=== PATIENT | male | born 1955 | race Caucasian/White ===

== ENCOUNTER → 2023-06-09 08:10 | Outpatient (REF) | payer MEDICARE, OTHER, SELFPAY | LOC: RAD 08:10 | PROVIDERS: ATTENDING PHYSICIAN Internal Medicine; FAMILY PHYSICIAN Internal Medicine | DX: R05.8 Other specified cough (principal) | CPT/HCPCS: 71046 ==

== ENCOUNTER → 2023-08-31 07:11 | Outpatient (REF) | payer MEDICARE, OTHER, SELFPAY | LOC: HWRAD 07:11 | PROVIDERS: ATTENDING PHYSICIAN Internal Medicine | DX: Z71.6 Tobacco abuse counseling (principal); R22.1 Localized swelling, mass and lump, neck | CPT/HCPCS: 76536 ==

== ENCOUNTER → 2024-01-25 09:37 | Outpatient (REF) | payer MEDICARE, OTHER, SELFPAY | LOC: HWRAD 09:37 | PROVIDERS: ATTENDING PHYSICIAN Internal Medicine; FAMILY PHYSICIAN Internal Medicine | DX: F17.210 Nicotine dependence, cigarettes, uncomplicated (principal) | CPT/HCPCS: 71271 ==

== ENCOUNTER → 2024-01-28 07:54 | Outpatient (REF) | payer MEDICARE, OTHER, SELFPAY | LOC: HWRCS 07:54 | PROVIDERS: ATTENDING PHYSICIAN Internal Medicine Cardiovascular Disease; FAMILY PHYSICIAN Internal Medicine | DX: I45.2 Bifascicular block (principal); I10 Essential (primary) hypertension; R42 Dizziness and giddiness | CPT/HCPCS: 93306 ==

== ENCOUNTER 2024-02-04 06:29 | Day surgery (SDC) | payer MEDICARE, OTHER, SELFPAY ==
[2024-02-04] VITALS (9 sets, daily range): BP systolic 112–149; BP diastolic 44–75; BMI 30.2
== END 2024-02-04 13:20 | disposition home or self-care (01) ==
LOC: SDS 06:29
PROVIDERS: ATTENDING PHYSICIAN Internal Medicine Critical Care Medicine
DX: C34.31 Malignant neoplasm of lower lobe, right bronchus or lung (principal); C77.1 Secondary and unspecified malignant neoplasm of intrathoracic lymph nodes; F17.200 Nicotine dependence, unspecified, uncomplicated; T65.222D Toxic effect of tobacco cigarettes, intentional self-harm, subsequent encounter; Y93.89 Activity, other specified; R59.0 Localized enlarged lymph nodes; R91.1 Solitary pulmonary nodule; J92.0 Pleural plaque with presence of asbestos
CPT/HCPCS: 31625; 31627; 31623; 31624; 31654; 88172; 88173; 88305; 71045; 76000; 81459; 88112; 88177; 88333; 88341; 88342; 94640

== ENCOUNTER → 2024-02-29 11:03 | Outpatient (REF) | payer MEDICARE, OTHER, SELFPAY ==
[2024-02-29 09:24] LABS: % Basophils 0.4 % (0-2); % Eosinophils 0.7 % (0-6); % Immature Granulocytes 0.7 % (0-0.5); % Lymphocytes 22.8 % (20.5-51.1); % Neutrophils 66.4 % (42.2-75.2); Absolute Basophils 0.1 10^3/uL (0-0.2); Absolute Eosinophils 0.1 10^3/uL (0-0.7); Absolute Immature Granulocytes 0.1 10^3/uL (0-0.05); Absolute Lymphocytes 2.8 10^3/uL (1.2-3.4); Absolute Monocytes 1.1 10^3/uL (0.1-0.6); Absolute Neutrophils 8.2 10^3/uL (1.4-6.5); Hematocrit 45.2 % (39.0-52.0); Hemoglobin 15.6 g/dL (13.0-18.0); Mean Corp Hgb Conc. 34.5 g/dL (33.0-37.0); Mean Corpuscular Hgb 32.8 pg (27.0-31.0); Nucleated Red Blood Cells % 0 % (-); Platelet Count 215 10^3/uL (130-400); Red Blood Cell Count 4.76 10^6/uL (4.70-6.10); Red Cell Dist. Width 13.5 % (11.5-14.5); White Blood Cell Count 12.3 10^3/uL (4.8-10.8)
[2024-02-29 09:26] LABS: INR 0.91; PT 12.5 Sec (11.4-14.6)
[2024-02-29 09:27] LABS: APTT 24.9 Sec (23.4-35.0)
[2024-02-29 09:36] LABS: ALT (SGPT) 20 U/L (0-50); AST (SGOT) 18 U/L (17-59); Albumin 3.8 g/dl (3.5-5.0); Alkaline Phosphatase 104 U/L (38-126); Blood Urea Nitrogen 11 mg/dl (9-20); Calcium 9.4 mg/dl (8.4-10.2); Carbon Dioxide 28 mmol/L (22-30); Chloride 98 mmol/L (98-107); Glucose 188 mg/dl (70-99); Potassium 4.1 mmol/L (3.5-5.1); Sodium 132 mmol/L (135-145); Total Bilirubin 0.4 mg/dl (0.2-1.3); Total Protein 6.2 g/dl (6.3-8.2); eGFR > 60.00
== END ==
LOC: OIDL 11:03
PROVIDERS: ATTENDING PHYSICIAN Internal Medicine Hematology & Oncology
DX: D75.1 Secondary polycythemia (principal); E83.10 Disorder of iron metabolism, unspecified
CPT/HCPCS: 80053; 85025; 85610; 85730

== ENCOUNTER → 2024-03-05 08:12 | Outpatient (REF) | payer MEDICARE, OTHER, SELFPAY | LOC: MRI 3T 08:12 | PROVIDERS: ATTENDING PHYSICIAN Internal Medicine Hematology & Oncology; FAMILY PHYSICIAN Internal Medicine; REFERRING PHYSICIAN Internal Medicine | DX: D75.1 Secondary polycythemia (principal); E83.10 Disorder of iron metabolism, unspecified; C34.91 Malignant neoplasm of unspecified part of right bronchus or lung; F17.210 Nicotine dependence, cigarettes, uncomplicated | CPT/HCPCS: 70553; A9575 ==

== ENCOUNTER → 2024-03-14 08:18 | Outpatient (REF) | payer MEDICARE, OTHER, SELFPAY ==
[2024-03-14 08:45] VITALS: BP 135/73; BP_SYST 98
== END ==
LOC: RADI 08:18
PROVIDERS: ATTENDING PHYSICIAN Internal Medicine Hematology & Oncology
DX: C34.91 Malignant neoplasm of unspecified part of right bronchus or lung (principal)
CPT/HCPCS: 36561; 76937; 77001; 99152; 99153; C1788

== ENCOUNTER → 2024-05-01 09:12 | Outpatient (REF) | payer MEDICARE, OTHER, SELFPAY ==
[2024-05-01 09:45] LABS: % Basophils 0.7 % (0-2); % Immature Granulocytes 0.7 % (0-0.5); % Lymphocytes 31.1 % (20.5-51.1); % Monocytes 7.9 % (1.7-9.3); % Neutrophils 57.6 % (42.2-75.2); Absolute Lymphocytes 0.5 10^3/uL (1.2-3.4); Absolute Monocytes 0.1 10^3/uL (0.1-0.6); Absolute Neutrophils 0.9 10^3/uL (1.4-6.5); Hematocrit 29.2 % (39.0-52.0); Hemoglobin 10.3 g/dL (13.0-18.0); Mean Corp Hgb Conc. 35.3 g/dL (33.0-37.0); Mean Corpuscular Hgb 32.3 pg (27.0-31.0); Mean Corpuscular Volume 91.5 fL (80.0-94.0); Mean Platelet Volume 10.5 fL (7.4-10.4); Platelet Count 105 10^3/uL (130-400); Red Blood Cell Count 3.19 10^6/uL (4.70-6.10); Red Cell Dist. Width 14.5 % (11.5-14.5); White Blood Cell Count 1.5 10^3/uL (4.8-10.8)
[2024-05-01 10:17] LABS: Blood Urea Nitrogen 8 mg/dl (9-20); Calcium 6.4 mg/dl (8.4-10.2); Carbon Dioxide 25 mmol/L (22-30); Chloride 99 mmol/L (98-107); Glucose 142 mg/dl (70-99); Potassium 3.3 mmol/L (3.5-5.1); Sodium 134 mmol/L (135-145); eGFR > 60.00
== END ==
LOC: OIDL 09:12
PROVIDERS: ATTENDING PHYSICIAN Internal Medicine Hematology & Oncology
DX: D75.1 Secondary polycythemia (principal)
CPT/HCPCS: 80048; 85025

== ENCOUNTER 2024-05-08 21:54 | Inpatient (IN) | payer MEDICARE, OTHER, SELFPAY ==
[2024-05-08 13:08] VITALS: BP 95/56
[2024-05-08 13:27] LABS: Hematocrit 25.5 % (39.0-52.0); Hemoglobin 9.2 g/dL (13.0-18.0); Mean Corp Hgb Conc. 36.1 g/dL (33.0-37.0); Mean Corpuscular Hgb 32.2 pg (27.0-31.0); Mean Corpuscular Volume 89.2 fL (80.0-94.0); Mean Platelet Volume 10.3 fL (7.4-10.4); Platelet Count 174 10^3/uL (130-400); Red Blood Cell Count 2.86 10^6/uL (4.70-6.10); Red Cell Dist. Width 16.4 % (11.5-14.5); White Blood Cell Count 3.1 10^3/uL (4.8-10.8)
[2024-05-08 13:54] LABS: ALT (SGPT) 35 U/L (0-50); AST (SGOT) 40 U/L (17-59); Albumin 3.3 g/dl (3.5-5.0); Alkaline Phosphatase 61 U/L (38-126); Blood Urea Nitrogen 11 mg/dl (9-20); Calcium 6.2 mg/dl (8.4-10.2); Carbon Dioxide 27 mmol/L (22-30); Chloride 94 mmol/L (98-107); Glucose 110 mg/dl (70-99); Potassium 2.9 mmol/L (3.5-5.1); Sodium 131 mmol/L (135-145); Total Bilirubin 0.9 mg/dl (0.2-1.3); eGFR > 60.00
[2024-05-08 14:19] LABS: Band Neutrophils 4 % (0-3); Eosinophils 2 % (0-6); Lymphocytes 12 % (20-51); Monocytes 15 % (2-9); Segmented Neutrophils 63 % (42-75)
[2024-05-08 14:20] LABS: Atypical Lymphocytes 4 %; Normal RBC Morphology Yes; Platelets Checked Yes; Total Cells Counted 100
[2024-05-08 17:10] VITALS: BMI 27.6
[2024-05-08 17:23] VITALS: BP 134/78
--- NOTE | 2024-05-08 17:49 | ED.GENMED ---
History of Present Illness
<Shawna Mcintyre PA-C - Last Filed: 05/08/24 20:42>
General
Chief Complaint: Abnormal Lab Value
Source: patient
Exam Limitations: none
Time Seen by Provider: 05/08/24 17:02
Nursing documentation reviewed up to this point in time: agreed with
History of Present Illness
History of Present Illness:
Patient is a 69-year-old male with history of lung cancer currently on chemotherapy, hypertension, hyperlipidemia presenting to the emergency department after outpatient lab work showed low calcium levels. Sent to the emergency department by
oncologist. Patient reports he does have some paresthesias to his bilateral hands, feet, and face. Patient reports mild shortness of breath which is somewhat chronic. Patient denies any chest pain. Patient does note that he has been much more
fatigued and mildly lightheaded recently. Patient denies any abdominal pain. Patient denies any lower extremity edema or pain.
Patient does report that his lab work obtained last week also showed a low calcium level however�patient was treated with IV calcium and p.o. calcium.
Review of Systems
<Shawna Mcintyre PA-C - Last Filed: 05/08/24 20:42>
Review of Systems
Allergies reviewed?: Yes
All Other Systems: ROS reviewed and negative except as documented in HPI and ROS
Phy Exam
<Shawna Mcintyre PA-C - Last Filed: 05/08/24 20:42>
Physical Exam
Physical Exam:
Vitals: Mildly hypertensive, tachycardic. Afebrile
General: Patient is in no acute distress.
Skin: Warm and dry, no rashes or lesions
Head: Normocephalic, atraumatic
Eyes: Sclera nonicteric. EOMs intact. No nystagmus.
Throat: Protecting airway
Neck: Normal ROM, no cervical spine tenderness, no meningismus
Cardiac: Tachycardic, normal rhythm, no murmurs.
Pulm: No respiratory distress. Scattered rhonchi bilaterally O2 saturation 99 on room air.
Abdomen: Abdomen soft. No abdominal tenderness.
Extremities: No evidence of cyanosis or edema. Palpable DP pulses bilaterally. Strength 5 out of 5 in upper and lower extremities. Sensation intact.
Neuro: AAOx3. Grossly intact.
Psychiatric: Normal affect.
Course
<Shawna Mcintyre PA-C - Last Filed: 05/08/24 20:42>
Orders/Labs/Results
Orders:
Orders
05/08/24 13:12
Electrocardiogram (*1) Urgent
Reason for Study: Other
Other Reason for Exam: abnormal lab value
05/08/24 13:13
EKG- Treatment ONCE
05/08/24 13:17
Complete Blood Count/With Diff Urgent
Comprehensive Metabolic Panel Urgent
Magnesium Urgent
Manual Differential Urgent
05/08/24 17:29
Add On- LAB Urgent
Tests Added?: magnesium
05/08/24 18:00
Add On- LAB Urgent
Tests Added?: PTH
Potassium Chloride [KCl] 40 meq PO NOW STA
05/08/24 18:21
CT Chest PE Study Urgent
Comment: lung CA on chemo
Reason For Exam: tachyardia, SOB
0.9% Sodium Chloride 500 ml [Nss] 500 ml IV BOLUS
05/08/24 18:24
Potassium Chloride [KCl] 40 meq 0.9% Sodium Chloride 250 ml [Nss] 250 ml IV NOW
05/08/24 18:30
Calcium Gluconate 2 gram/100mL [Calcium Gluconate] 2 gram in 100 ml IV ONCE
05/08/24 18:55
Magnesium Sulfate 2 Gram/50 ml [Magnesium Sulfate] 2 gram in 50 ml IV NOW
Abnormal Lab Results
05/08/24
13:17
WBC 3.1 L 10^3/uL
(4.8-10.8)
RBC 2.86 L 10^6/uL
(4.70-6.10)
Hgb 9.2 L g/dL
(13.0-18.0)
Hct 25.5 L %
(39.0-52.0)
MCH 32.2 H pg
(27.0-31.0)
RDW 16.4 H %
(11.5-14.5)
Band Neutrophils 4 H %
(0-3)
Lymphocytes (Manual) 12 L %
(20-51)
Monocytes (Manual) 15 H %
(2-9)
Sodium 131 L mmol/L
(135-145)
Potassium 2.9 L mmol/L
(3.5-5.1)
Chloride 94 L mmol/L
(98-107)
Glucose 110 H mg/dl
(70-99)
Calcium 6.2 L* mg/dl
(8.4-10.2)
Magnesium 0.6 L* mg/dl
(1.6-2.3)
Total Protein 6.0 L g/dl
(6.3-8.2)
Albumin 3.3 L g/dl
(3.5-5.0)
05/08/24 13:17
05/08/24 13:17
Vital Signs
Initial and Last Documented VS:
Initial Vital Signs
Temp Pulse Resp BP Pulse Ox
97.7 F 112 18 95/56 99
05/08/24 13:08 05/08/24 13:08 05/08/24 13:08 05/08/24 13:08 05/08/24 13:08
Last Documented Vital Signs
Temp Pulse Resp BP Pulse Ox
98.7 F 105 27 140/77 97
05/08/24 18:04 05/08/24 19:15 05/08/24 18:45 05/08/24 19:00 05/08/24 19:00
<Olivia Howard, DO - Last Filed: 05/08/24 19:04>
Orders/Labs/Results
Orders:
Orders
05/08/24 13:12
Electrocardiogram (*1) Urgent
Reason for Study: Other
Other Reason for Exam: abnormal lab value
05/08/24 13:13
EKG- Treatment ONCE
05/08/24 13:17
Complete Blood Count/With Diff Urgent
Comprehensive Metabolic Panel Urgent
Magnesium Urgent
Manual Differential Urgent
05/08/24 17:29
Add On- LAB Urgent
Tests Added?: magnesium
05/08/24 18:00
Add On- LAB Urgent
Tests Added?: PTH
Potassium Chloride [KCl] 40 meq PO NOW STA
05/08/24 18:21
CT Chest PE Study Urgent
Comment: lung CA on chemo
Reason For Exam: tachyardia, SOB
0.9% Sodium Chloride 500 ml [Nss] 500 ml IV BOLUS
05/08/24 18:24
Potassium Chloride [KCl] 40 meq 0.9% Sodium Chloride 250 ml [Nss] 250 ml IV NOW
05/08/24 18:30
Calcium Gluconate 2 gram/100mL [Calcium Gluconate] 2 gram in 100 ml IV ONCE
05/08/24 18:55
Magnesium Sulfate 2 Gram/50 ml [Magnesium Sulfate] 2 gram in 50 ml IV NOW
Abnormal Lab Results
05/08/24
13:17
WBC 3.1 L 10^3/uL
(4.8-10.8)
RBC 2.86 L 10^6/uL
(4.70-6.10)
Hgb 9.2 L g/dL
(13.0-18.0)
Hct 25.5 L %
(39.0-52.0)
MCH 32.2 H pg
(27.0-31.0)
RDW 16.4 H %
(11.5-14.5)
Band Neutrophils 4 H %
(0-3)
Lymphocytes (Manual) 12 L %
(20-51)
Monocytes (Manual) 15 H %
(2-9)
Sodium 131 L mmol/L
(135-145)
Potassium 2.9 L mmol/L
(3.5-5.1)
Chloride 94 L mmol/L
(98-107)
Glucose 110 H mg/dl
(70-99)
Calcium 6.2 L* mg/dl
(8.4-10.2)
Magnesium 0.6 L* mg/dl
(1.6-2.3)
Total Protein 6.0 L g/dl
(6.3-8.2)
Albumin 3.3 L g/dl
(3.5-5.0)
05/08/24 13:17
05/08/24 13:17
Vital Signs
Initial and Last Documented VS:
Initial Vital Signs
Temp Pulse Resp BP Pulse Ox
97.7 F 112 18 95/56 99
05/08/24 13:08 05/08/24 13:08 05/08/24 13:08 05/08/24 13:08 05/08/24 13:08
Last Documented Vital Signs
Temp Pulse Resp BP Pulse Ox
98.7 F 105 27 140/77 97
05/08/24 18:04 05/08/24 19:15 05/08/24 18:45 05/08/24 19:00 05/08/24 19:00
<Shawna Mcintyre PA-C - Last Filed: 05/08/24 20:42>
MDM/Problems Addressed
Differential Diagnosis Includes:
Not limited to: Patient side effect, hypocalcemia, acute hypomagnesemia, acute hypokalemia, hypoparathyroidism, etc.
MDM/Problems Addressed:
69-year-old male presenting with abnormal outpatient lab results and experiencing mild paresthesias of extremities and increased fatigue. Currently undergoing treatment for lung cancer. Also mild shortness of breath which appears somewhat chronic.
No fevers or chills. No chest pain. Apparently had a low calcium noted last week and treated with IV/p.o. calcium. Patient is stable vital signs on arrival other than mild tachycardia. Physical exam as above. Patient overall well-appearing.
Focal deficits noted. EKG shows sinus tachycardia. Mildly prolonged QTc, as well. Labs initiated in triage reviewed. CBC with leukopenia and anemia which appears baseline and chronic for patient. Chemistry shows hypokalemia with K of 2.9 and
hypocalcemia with a calcium of 6.2. Will check magnesium level and PTH. Given sinus tachycardia of unknown origin with current malignancy�will check CTA chest to rule out pulmonary embolism. Will replete potassium and calcium. Will closely
monitor and reassess.
Update: Magnesium level of 0.6. Will give 2 g IV magnesium. Suspects paresthesias likely secondary to hypocalcemia. Given patient has symptomatic hypocalcemia with both critically low calcium and magnesium levels�will admit to hospital for close
monitoring and continued electrolyte repletion. Suspect electrolyte derangements likely secondary to chemotherapy. PTH level pending. CTA chest pending
Update 8:30 PM: CTA chest report reviewed. No pulmonary embolism. Consolidation noted in right upper lobe although patient has no infectious symptoms very low clinical suspicion for pneumonia. Will hold on antibiotics for now. Will admit patient
for significant electrolyte derangements as discussed above. Patient accepted to hospital service in stable condition. Patient seen with attending physician. Patient
1. No hide she has a life alert to call right groin directly over the
Chronic conditions affecting care:
Lungs CA, COPD, hypertension
Acute Exacerbation and/or Progression of Chronic Illness:
Acutely hypertensive
<Shawna Mcintyre PA-C - Last Filed: 05/08/24 20:42>
*Radiology
Radiology exam reviewed: preliminary read by ED provider (CTA reviewed by -leo conrad PE)
*Pulse Oximetry
Patient hypoxic: no
*EKG
Interpreted by ED Provider?: Yes
EKG Intrepretation Date: 05/07/24
Interpretation: abnormal
Comparison EKG: changes noted
Heart Rate: 111
Rate: tachycardiac
Rhythm: sinus
Interval: long QT
Ischemia: no ischemia
*Civil Engineering Intern Interpretation
Rate: tachycardiac
Interpretation: abnormal
Heart Rate: 118
Rhythm: sinus
<Olivia Howard DO - Last Filed: 05/08/24 19:04>
*Critical Care Note
Total Time (30-74mins, 75-104mins- exclusive of procedures): 37
comment:
The high probability of a clinically significant, sudden or life threatening deterioration of the cardiovascular system(s)/severe electrolyte derangements required my full and direct attention, intervention and personal management. The aggregate
critical care time was 37 minutes. This time is in addition to time spent performing reported procedures but includes the following:
[x] Data Review and interpretation
[x] Patient assessment and monitoring of vital signs
[x] Documentation
[x] Medication orders and management
ED Attending Note
<Shawna Mcintyre PA-C - Last Filed: 05/08/24 20:42>
-
Portions of this chart may have been created with voice recognition software.� Occasional wrong word or��sound alike� substitutions may have occurred due to the inherent limitations of voice recognition software.
<Olivia Howard DO - Last Filed: 05/08/24 19:04>
ED Attending Note
Patient seen and examined by attending physician: Yes
I performed the substantive portion of visit, reviewed & personally made and approve the management plan that is documented in note by myself or CHRIS.: Yes
I performed a history and physical exam of patient and discussed management with resident, I reviewed resident's note and agree with documented findings and plan of care.: Yes
ED Attending Note:
69-year-old male with history of lung cancer presently on chemotherapy (last chemo 2 weeks ago) and history of COPD presenting for low calcium. Patient presents from his cancer center for low calcium. Notes that calcium was low last week, was
given 2 infusions of calcium and sent home on oral calcium. On recheck today, no improvement. Does note that he has been having paresthesias to his legs and hands. Denies chest pain, does have some dyspnea. Denies known reason for his low
calcium or issues of calcium in the past. Vital signs on arrival significant for tachycardia.
On exam patient is resting comfortably, no acute distress. Benign cardiac and pulmonary exam with exception of sinus tachycardia. On pulmonary exam, mild rhonchorous breath sounds bilaterally, suspected to be chronic given known history of cancer
and COPD. Denies any present dyspnea. No focal neurologic deficits with intact sensation and motor strength bilaterally. Patient had screening laboratory analysis and EKG prior to my assessment. Calcium is low at 6.2, worse from last week at
which point it was 6.4, status post repletion. EKG does show mildly prolonged QTc, 495. Suspect paresthesias could be secondary to hypocalcemia. Will add magnesium and parathyroid hormone. Will start repletion, of potassium as well as calcium.
Feel patient requires admission given failure of outpatient therapy and suspected symptomatic hypocalcemia. Unclear why patient is persistently tachycardic. Patient does have PE risk factors given active cancer. For This reason we will obtain CT
chest.
19:00 -patient's magnesium is critically low. Will additionally replete magnesium. Again plan for admission
Discharge Plan
Departure
Prescriptions:
No Action
clopidogrel 75 MG tablet
75 mg PO DAILY
atorvastatin 80 mg Tablet
80 mg PO DAILY
amlodipine 5 mg Tablet
5 mg PO DAILY
omeprazole 20 mg Capsule,Delayed Release(Dr/Ec)
20 mg PO QPMPRN PRN (Reason: heartburn)
albuterol sulfate 90 mcg/actuation Hfa Aerosol Inhaler
1 inh INHALATION R Q6HPRN PRN (Reason: shortness of breath)
Trelegy Ellipta 200-62.5-25 mcg Blister With Device
1 inh INHALATION R DAILY
prochlorperazine maleate [Compazine] 10 mg Tablet
10 mg PO Q6HPRN PRN (Reason: nausea)
ondansetron [Zofran ODT] 8 mg Tablet,Disintegrating
8 mg PO Q8HPRN PRN (Reason: nausea)
lisinopril 40 mg Tablet
40 mg PO DAILY
Referrals:
Bello Gastelum I., DO [Family Provider] -
Interventions
Interventions:
*Risk Screen - Suicide Last Done: 05/08/24 13:08
*General Assessment Last Done: 05/08/24 13:08
*Neglect/Abuse Screening Last Done: 05/08/24 13:08
ED- Fall Risk Assessment Last Done: 05/08/24 17:10
*ED COVID-19 Vaccine History Last Done: 05/08/24 17:07
Discharge Date and Time
Print Language: [place] CITIZEN
[2024-05-08 18:00] VITALS: BP 135/64
[2024-05-08 18:04] VITALS: BP 134/64
[2024-05-08] MEDS: KCL 40 MEQ PO (18:48)
[2024-05-08 18:53] LABS: Magnesium 0.6 mg/dl (1.6-2.3)
[2024-05-08 19:00] VITALS: BP 140/77
[2024-05-08] MEDS: NSS 500 IV (20:18)
[2024-05-08] MEDS: CALCIUM GLUCONATE 100 IV (20:18)
[2024-05-08] MEDS: KCL 270 MEQ IV (21:14)
--- NOTE | 2024-05-08 21:16 | HPS.HSE ---
Family Physician
-
Family Physician: Bello Gastelum
Chief Complaint
-
electrolyte abnormality
History of Present Illness
69-year-old male past medical history of lung cancer on chemotherapy, asthma/COPD hypertension, hyperlipidemia presenting to the emergency room after outpatient lab work showed low calcium levels.
He last received chemotherapy 2 Sundays ago.
He does complain of paresthesias of his bilateral hands, feet and face.
He complains of shortness of breath with productive cough for the past week. He was apparently started on Augmentin for acute bronchitis which she completed 4 days ago. He is also been complaining of severe diarrhea for the past week. Denies
abdominal pain. Occasionally having nausea but denies vomiting. Denies chest pain.
Smokes a few cigarettes a day. Denies alcohol use.
Medical History
Past Medical History
Past Medical History: Reports Other ( lung cancer on chemotherapy, asthma/COPD hypertension, hyperlipidemia)
Past Surgical History: Reports None
Social History
Tobacco: Smoker
Alcohol: None
Drug: None
Family History
Family History: Not pertinent
Allergies / Home Medications
Allergies reflects when Allergies were last updated in [employer].
Home Medications with original date entered in [employer]
Allergy/Medication List:
Allergies
Allergy/AdvReac Type Severity Reaction Status Date / Time
No Known Allergies Allergy Verified 05/08/24 13:07
Home Medications
clopidogrel 75 mg tablet 75 mg PO DAILY 09/18/14
albuterol sulfate 90 mcg/actuation aerosol inhaler 1 inh inhalation R Q6HPRN PRN shortness of breath 01/30/24
amlodipine 5 mg tablet 5 mg PO DAILY 01/30/24
atorvastatin 80 mg tablet 80 mg PO DAILY 01/30/24
fluticasone fur. 200 mcg-umeclid 62.5 mcg-vilant 25 mcg inhalat.powder (Trelegy Ellipta) 1 inh inhalation R DAILY 01/30/24
omeprazole 20 mg capsule,delayed release 20 mg PO QPMPRN PRN heartburn 01/30/24
lisinopril 40 mg tablet 40 mg PO DAILY 05/08/24
ondansetron 8 mg disintegrating tablet 8 mg PO Q8HPRN PRN nausea 05/08/24
prochlorperazine maleate 10 mg tablet (Compazine) 10 mg PO Q6HPRN PRN nausea 05/08/24
Review of Systems
-
History Source: Patient
A 12 point ROS was completed and negative except as noted: Yes
Constitutional: Reports No Symptoms
EENT: Reports No Symptoms
Respiratory: Reports No Symptoms
Cardiac: Reports No Symptoms
Abdomen/GI: Reports No Symptoms
: Reports No Symptoms
Musculoskeletal: Reports No Symptoms
Skin: Reports No Symptoms
Neurological: Reports No Symptoms
Endocrine: Reports No Symptoms
Hematologic/Lymphatic: Reports No Symptoms
Psych: Reports No Symptoms
Physical Exam
Vital Signs
Vital Signs
Temp Pulse Resp BP Pulse Ox
98.7 F 105 27 140/77 97
05/08/24 18:04 05/08/24 19:15 05/08/24 18:45 05/08/24 19:00 05/08/24 19:00
Physical Exam
General: Well Developed, Well Nourished and No Apparent Distress
HEENT: NormoCephalic, Moist mucous membranes and Atraumatic
Respiratory: Clear
Cardiac: S1/S2 and Regular Rhythm; No Murmur or Rub
GI: Soft, Non Tender, Non Distended and Normal Bowel Sounds; No Organomegaly
Rectal: Deferred by Provider
Musculoskeletal: No Clubbing, No Cyanosis and No Edema
Skin: No Rash
Neuro: Nonfocal/grossly intact
Laboratory Results
-
05/08/24 13:17
05/08/24 13:17
Laboratory Results
Total Bilirubin 0.9 mg/dl (0.2-1.3) 05/08/24 13:17
AST 40 U/L (17-59) 05/08/24 13:17
ALT 35 U/L (0-50) 05/08/24 13:17
Alkaline Phosphatase 61 U/L (38-126) 05/08/24 13:17
Data Reviewed
-
Lab Data: Labs Reviewed by me
Old Records: Reviewed
Impression/Plan
-
IMPRESSION:
PLAN:
# Sepsis (leukopenia, tachycardia) secondary to Large right upper lobe pneumonia/pneumonitis
-CT chest shows large right upper lobe airspace consolidation appearing new from 02/12
-Check COVID and influenza
-Check sputum culture, blood cultures
-Check Legionella, MRSA
-IV fluids
-Vancomycin/Zosyn
# Hypokalemia secondary to hypomagnesia
# Hypocalcemia secondary to hypomagnesemia
# Trite abnormality secondary to diarrhea
-Likely related to chemotherapy
-IV fluids
-Replete magnesium, calcium and potassium
# Diarrhea possibly secondary to chemotherapy/recent antibiotic use
-Check stool culture, C. difficile, norovirus
-Clear liquid diet
History of lung cancer
Asthma/COPD
-Continue Trelegy Ellipta
Essential hypertension
-Continue amlodipine, lisinopril
Hyperlipidemia
-Continue statin
Active smoker
-Smokes few cigarettes a day
History of PAD
-Continue Plavix
Full code
DVT prophylaxis�heparin
clear liquids
[2024-05-08 22:25] LABS: COVID-19 Antigen Negative (Negative)
[2024-05-08] MEDS: ZOSYN 50 IV (23:28)
[2024-05-08] MEDS: MAGNESIUM SULFATE 50 IV (23:40)
[2024-05-09] VITALS (7 sets, daily range): BP systolic 96–126; BP diastolic 55–68; BMI 29.9
[2024-05-09] MEDS: VANCOCIN 540 MG IV (00:17)
--- NOTE | 2024-05-09 00:30 | PTCARENOTE ---
Received patient from ED via stretcher accompanied by ED RN, ambulated to bed without assistance. Nursing assessment as documented. Oriented to room/facility, instructed use of call shaikh and within reach, safe environment maintained, VSS.
[2024-05-09] MEDS: NSS 1000 IV (01:12)
[2024-05-09] MEDS: ZOSYN 50 IV ×4 (04:14→21:26)
[2024-05-09 06:31] LABS: Hematocrit 21.3 % (39.0-52.0); Hemoglobin 7.8 g/dL (13.0-18.0); Mean Corp Hgb Conc. 36.6 g/dL (33.0-37.0); Mean Corpuscular Hgb 32.8 pg (27.0-31.0); Mean Corpuscular Volume 89.5 fL (80.0-94.0); Mean Platelet Volume 10.8 fL (7.4-10.4); Platelet Count 164 10^3/uL (130-400); Red Blood Cell Count 2.38 10^6/uL (4.70-6.10); Red Cell Dist. Width 16.3 % (11.5-14.5); White Blood Cell Count 2.5 10^3/uL (4.8-10.8)
[2024-05-09 06:53] LABS: ALT (SGPT) 35 U/L (0-50); AST (SGOT) 39 U/L (17-59); Albumin 2.8 g/dl (3.5-5.0); Alkaline Phosphatase 55 U/L (38-126); Blood Urea Nitrogen 8 mg/dl (9-20); Calcium 5.9 mg/dl (8.4-10.2); Carbon Dioxide 25 mmol/L (22-30); Chloride 100 mmol/L (98-107); Estimated Creatinine Clearance 101 ml/min; Glucose 135 mg/dl (70-99); Sodium 133 mmol/L (135-145); Total Bilirubin 0.7 mg/dl (0.2-1.3); Total Protein 5.2 g/dl (6.3-8.2); eGFR > 60.00
[2024-05-09] MEDS: SPIRIVA RESPIMAT 2.5 MCG 2 PUFF INH (07:23)
[2024-05-09] MEDS: SYMBICORT 160/4.5 MCG INHALER 2 PUFF INH ×2 (07:24→19:28)
[2024-05-09 08:43] LABS: Absolute Neutrophils -Man Diff 1.5 10^3/uL (1.4-6.5); Band Neutrophils 1 % (0-3); Eosinophils 4 % (0-6); Lymphocytes 21 % (20-51); Metamyelocytes 1 % (-); Monocytes 14 % (2-9); Normal RBC Morphology Yes; Platelets Checked Yes; Segmented Neutrophils 59 % (42-75); Total Cells Counted 100
[2024-05-09] MEDS: NORVASC 5 MG PO (09:01)
[2024-05-09] MEDS: HEPARIN 5000 UNITS SC ×2 (09:01→20:18)
[2024-05-09] MEDS: ZESTRIL 40 MG PO (09:01)
[2024-05-09] MEDS: PLAVIX 75 MG PO (09:02)
[2024-05-09] MEDS: LIPITOR 80 MG PO (09:02)
--- NOTE | 2024-05-09 09:19 | PHA.VAN.IN ---
Assessment
- Assessment
Renal Function: Appears similar to baseline
Concomitant Antimicrobials: piperacillin/tazobactam
AUC Dosing Plan
- Dosing Variables
Dosing Weight (kg): 94
Dosing CrCl (ml/min): 101
Vd coefficient (L/kg): 0.7
- Empiric Dosing
Initial / Loading Dose: 2000mg - 05/09 00:17
Maintenance Regimen: Vanc 1250mg Q12H starting at 1800
Estimated AUC (mcg*h/mL): 459
Estimated Peak (mcg*h/mL): 29.1
Estimated Trough (mcg/ml): 11.5
Estimated Half Life (H): 7.9
- Monitoring
No levels ordered at this time: consider levels in next few days
MRSA Screen: Ordered per protocol
Pharmacokinetics Vancomycin I
- -
Patient Age: 69
Patient Sex: Male
Vancomycin Day #: 1
Indication: Pulmonary/Respiratory
Requesting Provider: Dr. Manjarrez
Pertinent Antimicrobial Allergies:
NKDA
Height / Weight:
Height 5 ft 10 in
Actual Weight 94.461 kg
Pertinent Past Medical History: lung cancer
- Vital Signs / Lab Results
Temp Pulse Resp BP Pulse Ox
97.6 F 102 18 107/55 95
05/09/24 07:20 05/09/24 07:20 05/09/24 07:20 05/09/24 07:20 05/09/24 07:20
Lab Results - Hematology
05/08/24 05/09/24
13:17 04:57
WBC 3.1 L 2.5 L
Band Neutrophils 4 H 1
Lab Results - Chemistry
05/08/24 05/09/24
13:17 04:57
BUN 11 8 L
Creatinine 0.8 0.7
Estimated Creat Clear 101
Albumin 3.3 L 2.8 L
Microbiology Results
05/09/24 01:24 Gram Stain - Preliminary
Sputum
05/09/24 04:37 C. difficile GDH Antigen & Toxins - Final
Feces/Stool Negative for toxigenic C.difficile
05/09/24 05:42 Legionella Urinary Antigen - Final
Urine Negative for Legionella pneumophila Serogroup 1 antigen.
A negative result does not rule out the possiblity of
Legionella infection due to other serogroups or species of
Legionella. Clinical correlation is recommended.
05/08/24 22:03 Influenza Types A & B (TONEY) - Final
Nasal Swab Negative for Influenza A & B, NAAT
Negative results must be combined with clinical observations
and patient history.
Nucleic Acid Amplification test (NAAT)performed on the
[employer] platform.
--- NOTE | 2024-05-09 10:32 | W.PN.HOSP.TC ---
Today's Communication/Plan
-
See plan
Assessment / Plan
Assessment / Plan
Impression:
Right upper lobe pneumonia with concern for sepsis on admission.
Severe symptomatic (paresthesias) hypocalcemia
Hypokalemia
Hypomagnesemia
Hypoalbuminemia
Hyponatremia
Neutropenia.
Chronic normocytic anemia.
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
Diarrhea on presentation
Adrenal mass on imaging
Other conditions:
COPD/asthma
Tobacco use disorder
Essential hypertension
Dyslipidemia
PAD.
Plan:
Concern for sepsis upon presentation
Right upper lobe pneumonia/pneumonitis on CT scan
Afebrile.
Soft BP
Appears to be nontoxic with no evidence of distress
COVID-negative.
Influenza negative
Legionella negative
Initiated on broad-spectrum antibiotics: Vancomycin/Zosyn pending cultures.
Random cortisol pending.
With soft BP, hold Norvasc and lisinopril
Pulmonology/oncology evaluation
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
Oncology consultation
Severe hypocalcemia
Symptomatic, presentation, complaints of upper lower extremity paresthesias
ECG with sinus rhythm bifascicular block with no evidence of hypocalcemia related changes.
Recent PET scan with no evidence of skeletal/blastic metastasis.
Noted with severe hypomagnesemia and hypokalemia likely one of the causes.
? Chemotherapy effect
Hypoalbuminemia
Intact PTH.
Vitamin D metabolites
Phosphorus.
Ionized calcium in a.m.
Cardiac monitoring
Replete calcium, potassium, magnesium.
Dietary protein supplements
Hyponatremia mild sodium 131�133
Check urine awesome and urine sodium.
Follow BMP with ongoing IV hydration
Neutropenia likely secondary to chemotherapy.
Chronic normocytic anemia with trending down hemoglobin at 7.8 likely secondary to chemotherapy.
Follow CBC
Consider transfusion if falls below 7.
Loose stools on admission
Stool negative for C. difficile and norovirus
Suspect enteritis secondary to chemotherapy
Asthma/COPD
-Continue Trelegy Ellipta
Essential hypertension
-Hold amlodipine and lisinopril secondary to soft BP.
Hyperlipidemia
-Continue statin
Active smoker
-Smokes few cigarettes a day
History of PAD
-Continue Plavix
Full code
DVT prophylaxis�heparin
Anticipated Discharge: 24 - 48 hours
Subjective/Interval History
-
Date of Service: May 09, 2024
Objective Data
-
Labs:
Laboratory Results
05/09/24
04:57
WBC 2.5 L
Hgb 7.8 L
Hct 21.3 L
Plt Count 164
Sodium 133 L
Potassium 3.0 L
Chloride 100
Carbon Dioxide 25
BUN 8 L
Creatinine 0.7
Glucose 135 H
Calcium 5.9 L*
Total Bilirubin 0.7
AST 39
ALT 35
Alkaline Phosphatase 55
Vital Signs:
Vital Signs
Temp Pulse Resp BP Pulse Ox
97.6 F 102 18 107/55 95
05/09/24 07:20 05/09/24 07:20 05/09/24 07:20 05/09/24 07:20 05/09/24 09:37
I&O
05/08/24 05/09/24 05/10/24
06:59 06:59 06:59
Intake Total 770 / 770
Output Total 500 / 500
Balance 270 / 270
Physical Exam
-
General: Well Developed and No Apparent Distress
HEENT: Normocephalic, Atraumatic and Moist Mucous Membranes
Respiratory: Clear to Auscultation
Cardiac: Regular Rhythm and S1/S2; Negative Murmur, Rub or Gallop
GI: Soft, Nontender, Nondistended and Normal Bowel Sounds; Negative Organomegaly
Rectal: Deferred by Provider
Musculoskeletal: No Clubbing, No Cyanosis and No Edema
Skin: Negative Rash
Neuro: Nonfocal/Grossly Intact
--- NOTE | 2024-05-09 10:36 | CON.ONC ---
Documented by User: Giuseppe Chao DO, Resident 05/09/24 12:43
Impression
Impression
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
CT-currently receiving vancomycin and Zosyn IV
Patient remains hypocalcemic despite repletion, magnesium was found to be low
Patient receives weekly chemotherapy, final dose was scheduled for today 05/09/2024 when he missed
Patient also missed his radiation appointment today, he receives daily radiation Sunday through Sunday and is scheduled to complete his treatment to 05/17/2024
His chemotherapy and radiation appointments will have to be rescheduled once he is stable for discharge
Plan was for patient to complete his definitive course of chemoradiation and undergo consolidation with 1 year of durvalumab assuming he is stable and has a positive response on restaging imaging scans done
Plan
Plan
Continue antibiotics and supportive care as per primary
Continue magnesium and calcium replacement per primary
Recommend nephrology consult for management of hypocalcemia. Unsure etiology. Not typical for chemotherapy to cause hypocalcemia of this nature.
Daily CBC with differential to monitor hemoglobin and white blood cell count, continue trending serum levels of calcium and magnesium
Will attempt to reschedule chemotherapy appointment for next week once discharged
Recommend reinitiation of radiation treatments once patient is stable for discharge
Patient History
History of Present Illness
69-year-old male diagnosis of stage IIIb non-small cell lung carcinoma, subtype squamous cell carcinoma diagnosed 02/06. He is staged as a clinical T4, N2, M0. Has a history of COPD and emphysema, follows Dr. Vela for pulmonology. He has been
serially followed with CT scans for his pulmonary nodules, in January of last year he had a concerning nodule in the right lower lobe measuring 1.6 cm, there were also satellite nodules and mediastinal lymphadenopathy as well as precarinal
lymphadenopathy. Patient underwent bronchoscopy and pathology demonstrated malignant cells with squamous features. Staging PET/CT demonstrated FDG uptake in both the right lung nodule, hilar, mediastinal lymph nodes. Brain MRI was negative for
any [employer] metastasis. Patient has been receiving definitive chemoradiation, started on weekly carbo/Taxol 03/26/2024. He was scheduled for his last dose of chemotherapy today 05/09/2024 which he missed. Patient also missed his radiation appointment
due to being hospitalized. Patient has been receiving daily radiation Sunday through Sunday, scheduled to complete 05/17/2024. Patient has been experiencing cytopenias while on chemotherapy. Patient presented to [facility] for hypocalcemia seen on
outpatient labs, calcium 6.2 on admission. He received IV calcium and p.o. calcium while outpatient. He has been complaining of paresthesias in bilateral hands feet face as well as some abdominal musculoskeletal cramping. Patient was also mildly
short of breath. Previous plan regarding his cancer care was for patient to complete his definitive course of chemoradiation and undergo consolidation with 1 year of durvalumab assuming he is stable and has a positive response on restaging imaging
scans.
Patient Medication
�Medication �Instructions �Recorded �Confirmed �Last Taken �Type
clopidogrel 75 mg tablet 75 mg PO DAILY 09/18/14 05/08/24 01/27/24 History
albuterol sulfate 90 mcg/actuation 1 inh inhalation R Q6HPRN PRN 01/30/24 05/08/24 02/04/24 06:30 History
aerosol inhaler shortness of breath
amlodipine 5 mg tablet 5 mg PO DAILY 01/30/24 05/08/24 02/04/24 05:00 History
atorvastatin 80 mg tablet 80 mg PO DAILY 01/30/24 05/08/24 02/04/24 05:00 History
fluticasone fur. 200 mcg-umeclid 1 inh inhalation R DAILY 01/30/24 05/08/24 02/04/24 05:30 History
62.5 mcg-vilant 25 mcg
inhalat.powder (Trelegy Ellipta)
omeprazole 20 mg capsule,delayed 20 mg PO QPMPRN PRN heartburn 01/30/24 05/08/24 02/03/24 08:00 History
release
lisinopril 40 mg tablet 40 mg PO DAILY 05/08/24 05/08/24 Unknown History
ondansetron 8 mg disintegrating 8 mg PO Q8HPRN PRN nausea 05/08/24 05/08/24 Unknown History
tablet
prochlorperazine maleate 10 mg 10 mg PO Q6HPRN PRN nausea 05/08/24 05/08/24 Unknown History
tablet (Compazine)
Active Medications
Generic Name Dose Route Start Last Admin
Trade Name Freq PRN Reason Stop Dose Admin
Albuterol 1 puff 05/09/24 00:31
Albuterol Hfa [90 Mcg/Dose] Inhaler INH
R Q6HPRN PRN
shortness of breath
Protocol
Amlodipine Besylate 5 mg 05/09/24 08:00 05/09/24 09:01
Amlodipine 5 Mg Tablet PO 06/06/24 07:59 5 mg
DAILY RAMSES Administration
Atorvastatin Calcium 80 mg 05/09/24 08:00 05/09/24 09:02
Atorvastatin (Lipitor) 80 Mg Tablet PO 06/06/24 07:59 80 mg
DAILY RAMSES Administration
Budesonide/Formoterol Fumarate 2 puff 05/09/24 08:00 05/09/24 07:24
Symbicort Inhaler 160/4.5 INH 06/06/24 07:59 2 puff
R BID RAMSES Administration
Protocol
Clopidogrel Bisulfate 75 mg 05/09/24 08:00 05/09/24 09:02
Clopidogrel 75 Mg Tablet PO 06/06/24 07:59 75 mg
DAILY RAMSES Administration
Heparin Sodium 5,000 units 05/09/24 08:00 05/09/24 09:01
Heparin 5,000 Units/Ml 1 Ml Vial SC 06/06/24 07:59 5,000 units
Q12 RAMSES Administration
Piperacillin Sod/Tazobactam Sod 3.375 gram in 50 mls @ 100 mls/hr 05/08/24 22:00 05/09/24 09:03
Zosyn IV 50 mls
Q6H RAMSES Administration
Vancomycin HCl 1,250 mg/ 275 mls @ 183.33 mls/hr 05/09/24 18:00
Sodium Chloride IV
Q12H RAMSES
Protocol
Potassium Chloride 40 meq/ 1,042 mls @ 100 mls/hr 05/09/24 11:00
Magnesium Sulfate 1 grams/ IV
Calcium Gluconate 2,000 mg/ .[id number] RAMSES
Sodium Chloride
Lisinopril 40 mg 05/09/24 08:00 05/09/24 09:01
Lisinopril 20 Mg Tablet PO 06/06/24 07:59 40 mg
DAILY RAMSES Administration
Ondansetron HCl 4 mg 05/09/24 00:31
Ondansetron 4 Mg/2 Ml Vial IV 06/06/24 00:30
Q6HPRN PRN
nausea and vomiting
Pantoprazole Sodium 40 mg 05/09/24 00:55
Pantoprazole 40 Mg Delayed Release Tablet PO 06/06/24 00:54
QPMPRN PRN
heartburn
Sodium Chloride 0 flush 05/08/24 23:00
Sodium Chloride 0.9% (Flush) Syringe IV 06/05/24 22:59
PER PROTOCOL RAMSES
Tiotropium [place] 2 puff 05/09/24 08:00 05/09/24 07:23
Tiotropium (Spiriva Respimat) 2.5 Mcg Inhaler INH 06/06/24 07:59 2 puff
R DAILY RAMSES Administration
Protocol
Review of Systems
-
History Source: Patient
Constitutional: Reports Weight Loss and No Appetite (Patient reports no appetite, food is not palatable); Denies Fever
Respiratory: Reports Cough (Nonproductive, no hemoptysis) and Wheezing
Cardiac: Reports No Symptoms
GI: Reports Nausea; Denies Vomiting
Neuro: Denies Headache, Weakness or Numbness
Physical Exam
-
General: Well Developed, Well Nourished and No Apparent Distress
Cardiology: Normal Sinus Rhythm, S1 and S2
Pulmonary: Wheezes (Wheezes present in the right lower lung field)
GI: Soft and Other (Nontender, nondistended, abdomen tense. No rebound, no guarding)
Labs
Lab Results
WBC 2.5 10^3/uL (4.8-10.8) L 05/09/24 04:57
RBC 2.38 10^6/uL (4.70-6.10) L 05/09/24 04:57
Hgb 7.8 g/dL (13.0-18.0) L 05/09/24 04:57
Hct 21.3 % (39.0-52.0) L 05/09/24 04:57
MCV 89.5 fL (80.0-94.0) 05/09/24 04:57
MCH 32.8 pg (27.0-31.0) H 05/09/24 04:57
MCHC 36.6 g/dL (33.0-37.0) 05/09/24 04:57
RDW 16.3 % (11.5-14.5) H 05/09/24 04:57
Plt Count 164 10^3/uL (130-400) 05/09/24 04:57
MPV 10.8 fL (7.4-10.4) H 05/09/24 04:57
Creatinine 0.7 mg/dL (0.7-1.3) 05/09/24 04:57
Vital Signs
Vital Signs
Temp Pulse Resp BP Pulse Ox
97.6 F 102 18 107/55 95
05/09/24 07:20 05/09/24 07:20 05/09/24 07:20 05/09/24 07:20 05/09/24 09:37

Documented by User: Jovani Olivas MD 05/09/24 13:40
Plan
Plan
Continue antibiotics and supportive care as per primary
Continue magnesium and calcium replacement per primary
Recommend nephrology consult for management of hypocalcemia. Unsure etiology. Not typical for chemotherapy to cause hypocalcemia of this nature.
Daily CBC with differential to monitor hemoglobin and white blood cell count, continue trending serum levels of calcium and magnesium
Will attempt to reschedule chemotherapy appointment for next week once discharged
Recommend reinitiation of radiation treatments once patient is stable for discharge
Oncology/ Hematology:
Patient seen and evaluated and agree w/ resident note and plan as outlined
-stage III NSCLC - concurrent low dose carboplatin/ paclitaxel chemo/XRT
-electrolyte abnormalities - hypocalcemia/ hypokalemia
-[place] based chemotherapy as well as taxanes can cause hypocalcemia/ hypomagnesemia
-though this degree of hypocalcemia is not entirely c/w side effects from low dose carbo/taxol chemotherapy
-could consider nephrology evaluation
-supportive care
-f/u as outpt for continued treatment
will continue to follow with you
[2024-05-09] MEDS: KCL 1042 MG IV ×2 (10:52→21:26)
[2024-05-09] MEDS: KCL 1042 MEQ IV ×2 (10:52→21:26)
[2024-05-09] MEDS: KCL 1042 GRAMS IV ×2 (10:52→21:26)
[2024-05-09 11:44] LABS: Phosphorus 2.5 mg/dl (2.5-4.5)
[2024-05-09 12:03] LABS: Vitamin D, 25-OH*** 19.7 ng/mL (30-80)
--- NOTE | 2024-05-09 13:30 | CON.PUL ---
Consultation
Consultation Request
Date/Time Consultation Requested: 05/09/24
Date/Time Consultation Performed: 05/09/24
Performing Provider: Gemma
Reason for Consultation: Pneumonitis
Medical History
-
History of Present Illness:
Patient is a 69-year-old male with previous history of COPD, current smoker, recently diagnosed lung cancer status post chemo radiation presenting to ER after outpatient labs demonstrating severe hypocalcemia. He had received 5 rounds of
chemotherapy and felt progressively weak especially after the last 2 rounds. He did noticed paresthesias in the hands and face. He notes shortness of breath with productive cough for the past week. He was started on Augmentin for presumed acute
bronchitis with complaints of diarrhea. He did not feel that this was helpful. On arrival, CT scan noted to have right upper lobe airspace consolidation that is suspicious for pneumonia versus pneumonitis. Calcium level 5.9, magnesium 0.6,
potassium 2.9.
Past Medical History
Past Medical History: Other (see list below)
Social History
Tobacco: Smoker
Alcohol: None
Drug: None
Family History
Family History: Reviewed & Not Pertinent
Allergies / Home Medications
Allergies
Allergy/AdvReac Type Severity Reaction Status Date / Time
No Known Allergies Allergy Verified 05/08/24 13:07
Home Medications
�Medication �Instructions �Recorded �Confirmed �Last Taken �Type
clopidogrel 75 mg tablet 75 mg PO DAILY 09/18/14 05/08/24 01/27/24 History
albuterol sulfate 90 mcg/actuation 1 inh inhalation R Q6HPRN PRN 01/30/24 05/08/24 02/04/24 06:30 History
aerosol inhaler shortness of breath
amlodipine 5 mg tablet 5 mg PO DAILY 01/30/24 05/08/24 02/04/24 05:00 History
atorvastatin 80 mg tablet 80 mg PO DAILY 01/30/24 05/08/24 02/04/24 05:00 History
fluticasone fur. 200 mcg-umeclid 1 inh inhalation R DAILY 01/30/24 05/08/24 02/04/24 05:30 History
62.5 mcg-vilant 25 mcg
inhalat.powder (Trelegy Ellipta)
omeprazole 20 mg capsule,delayed 20 mg PO QPMPRN PRN heartburn 01/30/24 05/08/24 02/03/24 08:00 History
release
lisinopril 40 mg tablet 40 mg PO DAILY 05/08/24 05/08/24 Unknown History
ondansetron 8 mg disintegrating 8 mg PO Q8HPRN PRN nausea 05/08/24 05/08/24 Unknown History
tablet
prochlorperazine maleate 10 mg 10 mg PO Q6HPRN PRN nausea 05/08/24 05/08/24 Unknown History
tablet (Compazine)
Review of Systems
-
History Source: Patient
All other systems: Negative unless noted
Vitals / Labs / Diagnostic Testing
Vital Signs
Temp Pulse Resp BP Pulse Ox
97.8 F 94 20 108/65 96
05/09/24 11:01 05/09/24 11:01 05/09/24 11:01 05/09/24 11:01 05/09/24 11:01
Lab Data
05/09/24 04:57
05/09/24 04:57
Microbiology
05/09/24 04:37 Feces/Stool C. difficile GDH Antigen & Toxins - Final
Negative for toxigenic C.difficile
05/09/24 04:37 Feces/Stool - Final
Negative for Norovirus GI and GII.
05/08/24 22:03 Nose Nasal Screen MRSA (PCR) - Final
MRSA not detected - performed by PCR methodology.
05/09/24 01:24 Sputum Gram Stain - Preliminary
05/09/24 05:42 Urine Legionella Urinary Antigen - Final
Negative for Legionella pneumophila Serogroup 1 antigen.
A negative result does not rule out the possiblity of
Legionella infection due to other serogroups or species of
Legionella. Clinical correlation is recommended.
05/08/24 22:03 Nasal Swab Influenza Types A & B (TONEY) - Final
Negative for Influenza A & B, NAAT
Negative results must be combined with clinical observations
and patient history.
Nucleic Acid Amplification test (NAAT)performed on the
[employer] platform.
Diagnostic Testing:
Physical Exam
-
HEENT: Normocephalic, Anicteric and Moist Mucous Membranes
Cardiovascular: S1/S2 and Regular Rhythm
Respiratory: Wheeze, Rales and Non-Labored Respirations
GI: Soft, Non Distended and Non Tender
Neurology: Awake, Alert, Oriented and No Motor Deficits
Skin: Warm, Dry and Good Color
General: Comfortable and Other (NAD)
Assessment
-
Patient is a 69-year-old male with previous history of COPD, current smoker, recently diagnosed lung cancer status post chemo radiation presenting to ER after outpatient labs demonstrating severe hypocalcemia. He had received 5 rounds of
chemotherapy and felt progressively weak especially after the last 2 rounds. He did noticed paresthesias in the hands and face. He notes shortness of breath with productive cough for the past week. He was started on Augmentin for presumed acute
bronchitis with complaints of diarrhea. He did not feel that this was helpful. On arrival, CT scan noted to have right upper lobe airspace consolidation that is suspicious for pneumonia versus pneumonitis. Calcium level 5.9, magnesium 0.6,
potassium 2.9.
Suspected drug-induced and/or radiation pneumonitis
Right upper lobe consolidation, rule out pneumonia
Shortness of breath, acute on chronic
Productive cough
Ongoing smoker
Severe hypocalcemia
Hypokalemia
Hypomagnesemia
Leukopenia/anemia, likely chemo induced
Conditions present prior to admission
Recent diagnosis of squamous cell carcinoma of the lung (02/04/24) status post chemoradiation therapy
COPD/Centrilobular emphysema --severe
Follows Dr Menendez in office, last andrews 09/14/23- FEV1 1.4 L 43%
On Trelegy outpatient
Pure hypercholesterolemia
Embolism involving retinal artery
Essential (primary) hypertension
GERD
PAD extremities with intermittent claudication, right leg
Bifascicular block
Secondary polycythemia
Plan
No oxygen was needed on admission, currently saturating 95% on RA
Prior history of lung disease is noted including severe COPD, maintained on Trelegy
Prior 6-minute walk testing did not demonstrate need for oxygen at home
Follows in our office with Dr. Menendez, well-known to our service
Recently diagnosed with squamous lung cancer this past January
Following with [place] for chemoradiation therapy, had finished 4-5 cycles
He feels his symptoms were noticeable in the last few rounds
Appreciate onc recs
Suspect patient has radiation and/or drug-induced pneumonitis
He has some wheezing on examination, we will add high-dose prednisone
Imaging is reviewed
Can likely repeat CXR in next 24-48 hours
He is also placed on empiric antibiotics
Check PCT and cultures
If negative, can likely de-escalate therapy
Prior ECHO results are reviewed indicating preserved function
Can obtain proBNP to r/o volume
Has history of PAD as well
Smoking history noted--we discuss this often as OP
He struggles to quit
Smoking cessation advised, NRT can be added if needed
Will need outpatient pulmonary evaluation in our office for PFTs and 6MWT
Reviewed with patient
Will make FU visit sooner post discharge
We will follow
Diagnostic Data
Chest X-Ray: 02/04/24- There is no pneumothorax. There is moderate centrilobular emphysema. There is coarsening of the bronchovascular markings in the lower left lung and right lung base, new when compared with the examination earlier today and
likely reflecting edema. The pulmonary masses seen on CT are not visualized on this study
CT Scan: CHEST 05/08/24- 1. LARGE RIGHT UPPER LOBE AIRSPACE CONSOLIDATION which appears new from 02/13/2024. Diagnostic possibilities are (1) SEVERE RIGHT UPPER LOBE PNEUMONIA or (2) severe radiation pneumonitis.
2. Interval response to therapy of previously visualized right upper and lower lobe lung cancers.
3. Interval response to therapy of metastatic right hilar and mediastinal lymphadenopathy.
4. Severe bilateral bronchitis.
5. Moderate bilateral upper lobe centrilobular and paraseptal emphysema.
6. Mild to moderate peripheral scarring in both lungs.
7. Multiple calcified pleural plaques in the left hemithorax.
8. Moderate calcific atherosclerotic disease in the coronary arteries.
9. 2.5 cm adenoma in the left adrenal gland.
Echo: 01/28/24-Normal biventricular size and systolic function without regional wall motion abnormality. Estimated LVEF 55-60%. No significant valve disease. Compared to 01/21/21: no significant change.
PFT's: 09/14/2023: FEV1 1.4 L 43%, FVC 4.1 L 92%, ratio 34
Reports and relevant images were personally reviewed.
Total time spent on this consultation __78__ minutes which includes review of history, physical exam, medications, laboratory data, personal review of imaging, extensive review of outpatient records, discussion with care team and respiratory therapy.
--- NOTE | 2024-05-09 15:29 | CM ---
CM reviewed medical records. Patient lives independently with his . Patient does not have a history of VN. SNF or DME. Patient is active with his PCP.
PLAN: no needs noted.
[2024-05-09] MEDS: DELTASONE 60 MG PO (15:34)
[2024-05-09 17:27] LABS: Osmolality Urine 396 mOsm/kg (300-900)
[2024-05-09 17:39] LABS: Urine Sodium 41 mmol/L (30-90)
[2024-05-09 17:54] LABS: Procalcitonin 0.06 ng/ml (0.0-0.25)
[2024-05-09] MEDS: VANCOCIN 275 MG IV (18:23)
[2024-05-10 03:19] VITALS: BP 110/67
[2024-05-10] MEDS: ZOSYN 50 IV (04:37)
[2024-05-10] MEDS: VANCOCIN 275 MG IV (05:04)
[2024-05-10 07:00] VITALS: BP 127/74
[2024-05-10] MEDS: PLAVIX 75 MG PO (08:13)
[2024-05-10] MEDS: DELTASONE 60 MG PO (08:13)
[2024-05-10] MEDS: LIPITOR 80 MG PO (08:13)
[2024-05-10] MEDS: HEPARIN 5000 UNITS SC (08:14)
[2024-05-10] MEDS: SYMBICORT 160/4.5 MCG INHALER 2 PUFF INH (08:57)
[2024-05-10] MEDS: SPIRIVA RESPIMAT 2.5 MCG 2 PUFF INH (08:57)
[2024-05-10 09:12] LABS: Blood Urea Nitrogen 6 mg/dl (9-20); Carbon Dioxide 28 mmol/L (22-30); Chloride 103 mmol/L (98-107); Estimated Creatinine Clearance 118 ml/min; Glucose 137 mg/dl (70-99); Magnesium 1.6 mg/dl (1.6-2.3); Potassium 3.2 mmol/L (3.5-5.1); Sodium 134 mmol/L (135-145); eGFR > 60.00
--- NOTE | 2024-05-10 09:13 | PHA.VAN.FU ---
Vancomycin Assessment / Plan
- Assessment
Renal Function: Stable
WBC's are: Stable
In the past 24 hrs, patient has been: Afebrile
Concomitant Antimicrobials: ZOSYN
- Dosing Plan
Continue: 1250MG Q12H
- Monitoring Plan
Peak Level: 05/11 @2100
Trough Level: 05/12 @0530
- Follow Up
Pharmacy will continue to follow.
Vancomycin Follow UP
- -
Patient Age: 69
Patient Sex: Male
Vancomycin Day #: 2
Indication: Pulmonary/Respiratory
Requesting Provider: Dr. Manjarrez
Pertinent Antimicrobial Allergies:
NKDA
Height / Weight:
Height 5 ft 10 in
Actual Weight 94.461 kg
Pertinent Past Medical History: lung cancer
- Vital Signs / Lab Results
Temp Pulse Resp BP Pulse Ox
97.7 F 95 16 127/74 98
05/10/24 07:00 05/10/24 09:04 05/10/24 09:04 05/10/24 07:00 05/10/24 09:04
Lab Results - Hematology
05/08/24 05/09/24
13:17 04:57
WBC 3.1 L 2.5 L
Band Neutrophils 4 H 1
Lab Results - Chemistry
05/08/24 05/09/24 05/10/24
13:17 04:57 08:19
BUN 11 8 L 6 L
Creatinine 0.8 0.7 0.6 L
Estimated Creat Clear 101 118
Albumin 3.3 L 2.8 L
Microbiology Results
05/09/24 04:37 C. difficile GDH Antigen & Toxins - Final
Feces/Stool Negative for toxigenic C.difficile
- Final
Negative for Norovirus GI and GII.
05/08/24 22:03 Nasal Screen MRSA (PCR) - Final
Nose MRSA not detected - performed by PCR methodology.
05/09/24 01:24 Gram Stain - Preliminary
Sputum
05/09/24 05:42 Legionella Urinary Antigen - Final
Urine Negative for Legionella pneumophila Serogroup 1 antigen.
A negative result does not rule out the possiblity of
Legionella infection due to other serogroups or species of
Legionella. Clinical correlation is recommended.
05/08/24 22:03 Influenza Types A & B (TONEY) - Final
Nasal Swab Negative for Influenza A & B, NAAT
Negative results must be combined with clinical observations
and patient history.
Nucleic Acid Amplification test (NAAT)performed on the
[employer] platform.
[2024-05-10 09:16] LABS: % Basophils 0.4 % (0-2); % Eosinophils 0.4 % (0-6); % Immature Granulocytes 0.8 % (0-0.5); % Lymphocytes 16.2 % (20.5-51.1); % Monocytes 19.4 % (1.7-9.3); % Neutrophils 62.8 % (42.2-75.2); Absolute Lymphocytes 0.4 10^3/uL (1.2-3.4); Absolute Monocytes 0.5 10^3/uL (0.1-0.6); Absolute Neutrophils 1.6 10^3/uL (1.4-6.5); Hematocrit 22.3 % (39.0-52.0); Hemoglobin 8.1 g/dL (13.0-18.0); Mean Corp Hgb Conc. 36.3 g/dL (33.0-37.0); Mean Corpuscular Hgb 32.5 pg (27.0-31.0); Mean Corpuscular Volume 89.6 fL (80.0-94.0); Mean Platelet Volume 10.5 fL (7.4-10.4); Nucleated Red Blood Cells % 0 % (-); Platelet Count 182 10^3/uL (130-400); Red Blood Cell Count 2.49 10^6/uL (4.70-6.10); Red Cell Dist. Width 16.4 % (11.5-14.5); White Blood Cell Count 2.5 10^3/uL (4.8-10.8)
[2024-05-10 09:28] LABS: Intact PTH 33.4 pg/ml (13.6-85.8)
--- NOTE | 2024-05-10 09:30 | W.PN.PUL3 ---
Today's Communication / Plan
-
Continue with systemic steroids, currently on prednisone. Recommend reducing by 10 mg every 6th day until off
Up OOB as tolerated
Encourage incentive spirometer
Outpatient imaging should be repeated in about 4 to 6 weeks
Patient being prepared for discharge home. Outpatient follow-up will be arranged. No additional recommendations at this time. Pulmonary service will now sign off. Please reconsult if there are any additional questions/concerns, or if patient's
respiratory status deteriorates.
Assessment
-
Patient is a 69-year-old male with previous history of COPD, current smoker, recently diagnosed lung cancer status post chemo radiation presenting to ER after outpatient labs demonstrating severe hypocalcemia. He had received 5 rounds of
chemotherapy and felt progressively weak especially after the last 2 rounds. He did noticed paresthesias in the hands and face. He notes shortness of breath with productive cough for the past week. He was started on Augmentin for presumed acute
bronchitis with complaints of diarrhea. He did not feel that this was helpful. On arrival, CT scan noted to have right upper lobe airspace consolidation that is suspicious for pneumonia versus pneumonitis. Calcium level 5.9, magnesium 0.6,
potassium 2.9.
Suspected drug-induced and/or radiation pneumonitis
Right upper lobe consolidation, rule out pneumonia
Shortness of breath, acute on chronic
Productive cough
Ongoing smoker
Severe hypocalcemia
Hypokalemia
Hypomagnesemia
Leukopenia/anemia, likely chemo induced
Conditions present prior to admission
Recent diagnosis of squamous cell carcinoma of the lung (02/04/24) status post chemoradiation therapy
COPD/Centrilobular emphysema --severe
Follows Dr Menendez in office, last andrews 09/14/23- FEV1 1.4 L 43%
On Trelegy outpatient
Pure hypercholesterolemia
Embolism involving retinal artery
Essential (primary) hypertension
GERD
PAD extremities with intermittent claudication, right leg
Bifascicular block
Secondary polycythemia
Plan
No oxygen was needed on admission, currently saturating 95% on RA
Prior history of lung disease is noted including severe COPD, maintained on Trelegy
Prior 6-minute walk testing did not demonstrate need for oxygen at home
Follows in our office with Dr. Menendez, well-known to our service
Recently diagnosed with squamous lung cancer this past January
Following with [facility] for chemoradiation therapy, had finished 4-5 cycles
He feels his symptoms were noticeable in the last few rounds
Appreciate onc recs
Suspect patient has radiation and/or drug-induced pneumonitis, especially as on prior PET/CT on 02/13/2024 there is posterior right upper lobe consolidative opacity was not present, and he started chemo/radiation earlier this month (April 2024)
He has some wheezing on examination, high-dose prednisone started, currently on 60 mg. Recommend reducing by 10 mg every 6th day until off
Imaging is reviewed
Can likely repeat CXR in next 24-48 hours
He is also placed on empiric antibiotics with Zosyn/IV vancomycin
Procalcitonin 0.06, respiratory culture from 05/09/2024 shows usual anabell
Would consider de-escalating antibiotics given negative procalcitonin and nontoxic-appearing
Prior ECHO results are reviewed indicating preserved function
Can obtain proBNP to r/o volume
Has history of PAD as well
Smoking history noted--we discuss this often as OP
He struggles to quit
Smoking cessation advised, NRT can be added if needed
Will need outpatient pulmonary evaluation in our office for PFTs and 6MWT
Reviewed with patient
Will make FU visit sooner post discharge
Patient being prepared for discharge home. Outpatient follow-up will be arranged. No additional recommendations at this time. Pulmonary service will now sign off. Thank you for allowing us to be involved in the care of this patient. Please
reconsult if there are any additional questions/concerns, or if patient's respiratory status deteriorates.
Diagnostic Data
Chest X-Ray: 02/04/24- There is no pneumothorax. There is moderate centrilobular emphysema. There is coarsening of the bronchovascular markings in the lower left lung and right lung base, new when compared with the examination earlier today and
likely reflecting edema. The pulmonary masses seen on CT are not visualized on this study
CT Scan: CHEST 05/08/24- 1. LARGE RIGHT UPPER LOBE AIRSPACE CONSOLIDATION which appears new from 02/13/2024. Diagnostic possibilities are (1) SEVERE RIGHT UPPER LOBE PNEUMONIA or (2) severe radiation pneumonitis.
2. Interval response to therapy of previously visualized right upper and lower lobe lung cancers.
3. Interval response to therapy of metastatic right hilar and mediastinal lymphadenopathy.
4. Severe bilateral bronchitis.
5. Moderate bilateral upper lobe centrilobular and paraseptal emphysema.
6. Mild to moderate peripheral scarring in both lungs.
7. Multiple calcified pleural plaques in the left hemithorax.
8. Moderate calcific atherosclerotic disease in the coronary arteries.
9. 2.5 cm adenoma in the left adrenal gland.
Echo: 01/28/24-Normal biventricular size and systolic function without regional wall motion abnormality. Estimated LVEF 55-60%. No significant valve disease. Compared to 01/21/21: no significant change.
PFT's: 09/14/2023: FEV1 1.4 L 43%, FVC 4.1 L 92%, ratio 34
Reports and relevant images were personally reviewed.
Total time spent today was 37 minutes for this encounter. Time includes reviewing laboratory test/imaging results, reviewing pertinent medical records, obtaining and reviewing medical history, performing an appropriate exam, ordering medications,
tests and procedures. Time also includes documentation of this encounter, coordinating patient care and communicating with other healthcare professionals. Total time does not include separately billed tests performed on this date of service.
Subjective Data
-
Date of Service:
Date of Service: May 10, 2024
Chief Complaint: Pulmonary Follow Up
Subjective:
Patient seen and evaluated today at bedside. He is eager to go home. He denies shortness of breath and is breathing comfortably on room air. Also denies chest pain, nausea, fevers or chills.
Review of Systems
General: Other (Negative unless mentioned above)
Objective Data
Data Reviewed
Vital Signs / I&O / Oxygen:
Vital Signs
Temp Pulse Resp BP Pulse Ox
98.0 F 97 18 110/67 97
05/10/24 03:19 05/10/24 03:19 05/10/24 03:19 05/10/24 03:19 05/10/24 03:19
Intake and Output
05/09/24 05/10/24 05/11/24
06:59 06:59 06:59
Intake Total 770 / 770 2285 / 2285
Output Total 500 / 500 1250 / 1250
Balance 270 / 270 1035 / 1035
SaO2 97
Physical Exam
General: Respiratory Distress (negative), Comfortable, Chills (negative) and Sweats (negative)
HEENT: Normocephalic and Anicteric
Cardiovascular: S1-S2 and Peripheral Edema (negative)
Respiratory: Wheeze (Wilkinson diffusely upon expiration bilaterally), Crackles (Posterior right upper lobe) and Rhonchi (negative)
GI: Soft, Non Distended, Non Tender and Normal Bowel Sounds
Neurology: AO x 3 and Tremors (negative)
Skin: Warm, Dry, Cyanosis (negative) and Jaundice (negative)
Labs/Micro/Reports
Microbiology
05/09/24 04:37 Feces/Stool C. difficile GDH Antigen & Toxins - Final
Negative for toxigenic C.difficile
05/09/24 04:37 Feces/Stool - Final
Negative for Norovirus GI and GII.
05/08/24 22:03 Nose Nasal Screen MRSA (PCR) - Final
MRSA not detected - performed by PCR methodology.
05/09/24 01:24 Sputum Gram Stain - Preliminary
05/09/24 05:42 Urine Legionella Urinary Antigen - Final
Negative for Legionella pneumophila Serogroup 1 antigen.
A negative result does not rule out the possiblity of
Legionella infection due to other serogroups or species of
Legionella. Clinical correlation is recommended.
05/08/24 22:03 Nasal Swab Influenza Types A & B (TONEY) - Final
Negative for Influenza A & B, NAAT
Negative results must be combined with clinical observations
and patient history.
Nucleic Acid Amplification test (NAAT)performed on the
[employer] platform.
[2024-05-10] MEDS: KCL 1042 GRAMS IV (09:55)
[2024-05-10] MEDS: KCL 1042 MG IV (09:55)
[2024-05-10] MEDS: KCL 1042 MEQ IV (09:55)
[2024-05-10] MEDS: OSCAL CAL 500 500 MG PO ×2 (10:58→16:47)
[2024-05-10 11:00] VITALS: BP 136/73
--- NOTE | 2024-05-10 13:07 | W.PN.HOSP.TC ---
Today's Communication/Plan
-
Await nephrology input
Start Os-Alberto tablets
Continue oral taper steroids
Possible discharge home later today
Assessment / Plan
Assessment / Plan
Impression:
Radiation pneumonitis involving right upper lobe
Right upper lobe pneumonia ruled out
Severe symptomatic (paresthesias) hypocalcemia
Hypokalemia
Hypomagnesemia
Hypoalbuminemia
Hyponatremia
Neutropenia.
Chronic normocytic anemia.
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
Diarrhea on presentation
Adrenal mass on imaging
Other conditions:
COPD/asthma
Tobacco use disorder
Essential hypertension
Dyslipidemia
PAD.
Plan:
Concern for sepsis upon presentation
Right upper lobe pneumonia/pneumonitis on CT scan
Afebrile.
Soft BP
Appears to be nontoxic with no evidence of distress
COVID-negative.
Influenza negative
Legionella negative
Random cortisol pending.
Discontinue further antibiotics as no clear signs of active infection
Patient likely have radiation pneumonitis and will be provided tapering course of steroid
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
Oncology consultation
Severe hypocalcemia
Symptomatic, presentation, complaints of upper lower extremity paresthesias
ECG with sinus rhythm bifascicular block with no evidence of hypocalcemia related changes.
Recent PET scan with no evidence of skeletal/blastic metastasis.
Noted with severe hypomagnesemia and hypokalemia likely one of the causes.
? Chemotherapy effect
Hypoalbuminemia
Intact PTH.
Vitamin D metabolites
Phosphorus.
Cardiac monitoring
Replete calcium, potassium, magnesium.
Nephrology evaluation requested
Hyponatremia mild sodium 131�133
Check urine awesome and urine sodium.
Follow BMP with ongoing IV hydration
Neutropenia likely secondary to chemotherapy.
Chronic normocytic anemia with trending down hemoglobin at 7.8 likely secondary to chemotherapy.
Follow CBC
Consider transfusion if falls below 7.
Loose stools on admission
Stool negative for C. difficile and norovirus
Suspect enteritis secondary to chemotherapy
Asthma/COPD
-Continue Trelegy Ellipta
Essential hypertension
-Hold amlodipine and lisinopril secondary to soft BP.
Hyperlipidemia
-Continue statin
Active smoker
-Smokes few cigarettes a day
History of PAD
-Continue Plavix
Full code
DVT prophylaxis�heparin
Anticipated Discharge: Within 24 hours
Subjective/Interval History
-
Date of Service: May 10, 2024
Resting comfortably in bed
No reported issues overnight
Tingling of hands/leg is resolved
Objective Data
-
Labs:
Laboratory Results
05/10/24
08:19
WBC 2.5 L
Hgb 8.1 L
Hct 22.3 L
Plt Count 182
Sodium 134 L
Potassium 3.2 L
Chloride 103
Carbon Dioxide 28
BUN 6 L
Creatinine 0.6 L
Glucose 137 H
Calcium 7.0 L
Vital Signs:
Vital Signs
Temp Pulse Resp BP Pulse Ox
97.9 F 104 18 136/73 96
05/10/24 11:00 05/10/24 11:00 05/10/24 11:00 05/10/24 11:00 05/10/24 11:00
I&O
05/09/24 05/10/24 05/11/24
06:59 06:59 06:59
Intake Total 770 / 770 2285 / 2285 780 / 780
Output Total 500 / 500 1250 / 1250
Balance 270 / 270 1035 / 1035 780 / 780
Review of Systems
-
Respiratory: Reports No Symptoms
Cardiac: Reports No Symptoms
Abdomen/GI: Reports No Symptoms
Physical Exam
-
General: Well Developed and No Apparent Distress
HEENT: Normocephalic, Atraumatic and Moist Mucous Membranes
Respiratory: Clear to Auscultation
Cardiac: Regular Rhythm and S1/S2; Negative Murmur, Rub or Gallop
GI: Soft, Nontender, Nondistended and Normal Bowel Sounds; Negative Organomegaly
Rectal: Deferred by Provider
Musculoskeletal: No Clubbing, No Cyanosis and No Edema
Skin: Negative Rash
Neuro: Nonfocal/Grossly Intact
--- NOTE | 2024-05-10 13:33 | W.CON.NEPH ---
Addendum entered and electronically signed by Reza Cross MD 05/10/24 13:48:
Hypocalcemia likely potentiated by chemotherapy as well as hypoparathyroidism potentiated by hypomagnesemia which was potentiated as well by chemotherapy
Hypokalemia then potentiated by hypomagnesemia
Original Note:
Consultation
-
Date/Time Consultation Requested: 05/10/2024 12 PM
Date/Time Consultation Performed: 05/10/2024 1 PM
Requesting Provider: Dr. Dawkins
Performing Provider: Dr. Cross
Reason for Consultation: Hypocalcemia
Medical History
-
Chief Complaint: Hypocalcemia
History of Present Illness:
This is a 69-year-old gentleman who has stage IIIb right upper lobe squamous cell carcinoma of the lung who has thus far received 5 cycles of chemotherapy including carboplatin and Taxol. He also received steroids with his infusion. However about
2 and half weeks ago his blood work had shown hypocalcemia and likely also hypokalemia and his chemotherapy was deferred. He received 2 riders of calcium that week. The next week his levels were still low and his chemotherapy was deferred again
and he was sent to the emergency room for further evaluation of his hypocalcemia. Here he was noted to be also significantly hypomagnesemic along with hypocalcemia and hypokalemia. We are asked to assist in management of his electrolytes. He also
has hypertension on multidrug regimen which is controlled as well as hyperlipidemia on statin therapy which is controlled
Past Medical History
Squamous cell lung cancer stage IIIb
Asthma COPD
hypertension
GERD
Hyperlipidemia
Social History
Tobacco: Smoker
Alcohol: None
Family History
Family History: Not Pertinent
Allergies / Home Medications
Allergy/AdvReac Type Severity Reaction Status Date / Time
No Known Allergies Allergy Verified 05/08/24 13:07
�Medication �Instructions �Recorded �Confirmed �Type
clopidogrel 75 mg tablet 75 mg PO DAILY 09/18/14 05/08/24 History
albuterol sulfate 90 mcg/actuation 1 inh inhalation R Q6HPRN PRN 01/30/24 05/08/24 History
aerosol inhaler shortness of breath
amlodipine 5 mg tablet 5 mg PO DAILY 01/30/24 05/08/24 History
atorvastatin 80 mg tablet 80 mg PO DAILY 01/30/24 05/08/24 History
fluticasone fur. 200 mcg-umeclid 1 inh inhalation R DAILY 01/30/24 05/08/24 History
62.5 mcg-vilant 25 mcg
inhalat.powder (Trelegy Ellipta)
omeprazole 20 mg capsule,delayed 20 mg PO QPMPRN PRN heartburn 01/30/24 05/08/24 History
release
lisinopril 40 mg tablet 40 mg PO DAILY 05/08/24 05/08/24 History
ondansetron 8 mg disintegrating 8 mg PO Q8HPRN PRN nausea 05/08/24 05/08/24 History
tablet
prochlorperazine maleate 10 mg 10 mg PO Q6HPRN PRN nausea 05/08/24 05/08/24 History
tablet (Compazine)
prednisone 10 mg tablet See Rx Instructions .Route 05/10/24 Rx
.COMPLEX #30 tabs
Review of Systems
-
No chest pain or shortness of breath
All other systems: Negative unless noted
Physical Exam
Vital Signs
Vital Signs
Temp Pulse Resp BP Pulse Ox
97.9 F 104 18 136/73 96
05/10/24 11:00 05/10/24 11:00 05/10/24 11:00 05/10/24 11:00 05/10/24 11:00
Lab Results
WBC 2.5 10^3/uL (4.8-10.8) L 05/10/24 08:19
RBC 2.49 10^6/uL (4.70-6.10) L 05/10/24 08:19
Hgb 8.1 g/dL (13.0-18.0) L 05/10/24 08:19
Hct 22.3 % (39.0-52.0) L 05/10/24 08:19
Plt Count 182 10^3/uL (130-400) 05/10/24 08:19
Sodium 134 mmol/L (135-145) L 05/10/24 08:19
Potassium 3.2 mmol/L (3.5-5.1) L 05/10/24 08:19
Chloride 103 mmol/L (98-107) 05/10/24 08:19
Carbon Dioxide 28 mmol/L (22-30) 05/10/24 08:19
BUN 6 mg/dl (9-20) L 05/10/24 08:19
Creatinine 0.6 mg/dL (0.7-1.3) L 05/10/24 08:19
eGFR > 60.00 05/10/24 08:19
Glucose 137 mg/dl (70-99) H 05/10/24 08:19
Calcium 7.0 mg/dl (8.4-10.2) L 05/10/24 08:19
Phosphorus 2.5 mg/dl (2.5-4.5) 05/09/24 10:57
Albumin 2.8 g/dl (3.5-5.0) L 05/09/24 04:57
Laboratory Tests
05/01/24 05/08/24
09:07 13:17
Calcium 6.4 L*
Magnesium 0.6 L*
Laboratory Tests
05/09/24
17:13
Urine Osmolality 396
Urine Sodium 41
CT chest with IV contrast on 05/08/2024
IMPRESSION:
1. LARGE RIGHT UPPER LOBE AIRSPACE CONSOLIDATION which appears new from 02/13/2024. Diagnostic possibilities are (1) SEVERE RIGHT UPPER LOBE PNEUMONIA or (2) severe radiation pneumonitis.
2. Interval response to therapy of previously visualized right upper and lower lobe lung cancers.
3. Interval response to therapy of metastatic right hilar and mediastinal lymphadenopathy.
4. Severe bilateral bronchitis.
5. Moderate bilateral upper lobe centrilobular and paraseptal emphysema.
6. Mild to moderate peripheral scarring in both lungs.
7. Multiple calcified pleural plaques in the left hemithorax.
8. Moderate calcific atherosclerotic disease in the coronary arteries.
9. 2.5 cm adenoma in the left adrenal gland.
Physical Exam
Patient is awake alert oriented and in no distress. Mood and affect were pleasant, insight and judgment were good. Pupils are equal round and reactive to light, extraocular movements are intact, sclera were anicteric. Hearing was normal, ears and
nose are intact. Oropharynx was clear. Neck was supple with trachea midline and no thyromegaly. Heart was regular rate and rhythm without rubs. Lower extremities without edema. Lungs were clear to auscultation bilaterally and with normal
excursion. Abdomen was soft, nontender, with normal active bowel sounds, and no hepatosplenomegaly. Skin was without rash and with normal turgor.
Data Reviewed
-
CT Scan: Report Reviewed by me
Medical Tests (Nuc Med, Echo etc): Image Personally Visualized and interpreted (EKG on 05/08/2024 by reading shows sinus tachycardia right bundle branch block left anterior fascicular block)
Labs: Labs Reviewed by me
Old Records: Reviewed
Assessment/Plan
-
Impression:
Radiation pneumonitis involving right upper lobe
Severe symptomatic (paresthesias) hypocalcemia
Hypokalemia
Hypomagnesemia
Hypoalbuminemia
Hyponatremia
Neutropenia.
Chronic normocytic anemia.
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
Adrenal mass on imaging
Plan
Further potassium replacement
Further calcium replacement
Further magnesium replacement
Recommend [id number] magnesium 1 tablet twice daily on discharge
May continue outpatient calcium dosing, 1200 mg twice daily
May continue outpatient vitamin D dosing as well < 4000 units daily
Potassium 20 mill equivalents daily on discharge
Metabolic panel with magnesium on Sunday and Sunday next week
[2024-05-10] MEDS: KCL 40 MEQ PO (13:46)
--- NOTE | 2024-05-10 13:53 | CM ---
CM reviewed medical records. Plan for discharge to home today. No needs noted.
PLAN: home no needs.
[2024-05-10 15:00] VITALS: BP 144/79
[2024-05-10] MEDS: MAG-TAB SR 84 MG PO (15:52)
--- NOTE | 2024-05-10 16:58 | PTCARENOTE ---
Called IV team to de access subq port
--- NOTE | 2024-05-11 16:10 | W.DCSUMMARY ---
Discharge Summary
Discharge Data
Date of Admission: 05/08/24
Date of Discharge: 05/10/24
-
Pending Results: No
Hospital Course
Discharging Physician : Dr Loyd Dawkins
Disposition : To home
Primary care physician : Dr Bello Gastelum
Principal Discharge diagnosis :
Radiation pneumonitis involving right upper lobe
Severe symptomatic (paresthesias) hypocalcemia
Hypokalemia
Hypomagnesemia
Hyponatremia
Neutropenia.
Chronic Discharge diagnosis :
Chronic normocytic anemia.
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
Adrenal mass on imaging
Chronic obstructive pulmonary disease/asthma
Tobacco use disorder
Essential hypertension
Hyperlipidemia
Peripheral artery disease
Hospital Course :
Patient is a 69-year-old male with no mentioned past medical history came to ER after noted to having abnormal calcium/magnesium levels on outpatient lab workup. Patient also endorsing some shortness of breath.
Evaluation in ER suggestive and concerning for ongoing sepsis. A CT scan of chest was done showing right upper lobe pneumonia versus pneumonitis. COVID/flu/Legionella were checked, negative. Patient was started on broad-spectrum antibiotic and
pulmonology was involved in care. Patient did not have any other strong supportive symptoms of ongoing pneumonia. Procalcitonin was checked and was low as well. Antibiotics were discontinued and patient was monitored. Patient was started on
steroids for likely radiation pneumonitis. At discharge patient provided slow taper of steroids based on pulmonology recommendation.
Patient had significant electrolyte imbalances with Hypoglycemia/hypokalemia and hypomagnesemia. All this was replaced with IV fluid. PTH/vitamin D level were checked and was found to having low vitamin D level. Nephrology was involved in care
and patient was recommended to be maintained on oral calcium/magnesium/potassium supplement at discharge. Reason for electrolyte imbalance is possibly chemotherapy related although oncology evaluated and deemed this less likely.
Post medical stabilization patient was discharged to home at this point.
Important imaging findings :
None
Procedure findings :
None
Discharge Plan
-
Patient Disposition: Home (Routine Discharge)
Discharge Diagnosis/Procedures: Radiation pneumonitis, Symptomatic hypocalcemia
Condition: Fair
Diet: Regular
Activity: As tolerated
Driving Restrictions: No driving for 24 hours
Bathing Restrictions: OK to Shower
Activity Restrictions/Additional Instructions:
Please follow-up with radiation oncologist to continue radiation therapy.
Referrals:
Bello Gastelum I., DO [Family Provider] - in one week
Zahida Menendez, DO [Active] - in two to four weeks
Prescriptions:
New
potassium chloride 20 mEq tablet extended release
20 meq PO DAILY Qty: 30 1RF
magnesium 250 mg tablet
250 mg PO BID Qty: 60 0RF
Calcium 600 + D(3) 600 mg-5 mcg (200 unit) capsule
2 cap PO BID Qty: 120 1RF
prednisone 10 mg Tablet
See Rx Instructions .ROUTE .COMPLEX Qty: 126 0RF
Rx Instructions:
Take By Mouth:
60 mg daily x6 days, 50 mg daily x6 days,
40 mg daily x6 days, 30 mg daily x6 days,
20 mg daily x6 days, 10 mg daily x6 days
benzonatate 200 mg capsule
200 mg PO TID PRN (Reason: Cough) Qty: 30 0RF
Continued
clopidogrel 75 MG tablet
75 mg PO DAILY
atorvastatin 80 mg Tablet
80 mg PO DAILY
amlodipine 5 mg Tablet
5 mg PO DAILY
omeprazole 20 mg Capsule,Delayed Release(Dr/Ec)
20 mg PO QPMPRN PRN (Reason: heartburn)
albuterol sulfate 90 mcg/actuation Hfa Aerosol Inhaler
1 inh INHALATION R Q6HPRN PRN (Reason: shortness of breath)
Trelegy Ellipta 200-62.5-25 mcg Blister With Device
1 inh INHALATION R DAILY
prochlorperazine maleate [Compazine] 10 mg Tablet
10 mg PO Q6HPRN PRN (Reason: nausea)
ondansetron 8 mg Tablet,Disintegrating
8 mg PO Q8HPRN PRN (Reason: nausea)
lisinopril 40 mg Tablet
40 mg PO DAILY
Discharge Orders:
Discharge Patient (As Directed); Ordered 05/10/24
Ordered By: Loyd Dawkins
Discharge Date and Time
Discharge Date/Time: 05/10/24 17:29
Print Language: MALAYSIAN
[2024-05-12 04:02] LABS: Vitamin D 1,25 Dihydroxy 52.1 pg/mL (19.9-79.3)
== END 2024-05-10 17:29 | disposition home or self-care (01) | DRG 871 ==
LOC: 1 ACUTE 21:54
PROVIDERS: Emergency Medicine; Internal Medicine; ADMITTING PHYSICIAN Hospitalist; ATTENDING PHYSICIAN Hospitalist; CONSULT PHYSICIAN Internal Medicine; CONSULT PHYSICIAN Internal Medicine Hematology & Oncology; CONSULT PHYSICIAN Specialist; EMERGENCY PHYSICIAN Student in an Organized Health Care Education/Training Program; FAMILY PHYSICIAN Internal Medicine
DX: A41.9 Sepsis, unspecified organism (principal); J69.0 Pneumonitis due to inhalation of food and vomit; J44.0 Chronic obstructive pulmonary disease with (acute) lower respiratory infection; C34.11 Malignant neoplasm of upper lobe, right bronchus or lung; E87.1 Hypo-osmolality and hyponatremia; F17.210 Nicotine dependence, cigarettes, uncomplicated; D70.9 Neutropenia, unspecified; E87.6 Hypokalemia; E83.42 Hypomagnesemia; I10 Essential (primary) hypertension; Z79.02 Long term (current) use of antithrombotics/antiplatelets; E83.51 Hypocalcemia; K21.9 Gastro-esophageal reflux disease without esophagitis
CPT/HCPCS: 71275; 80048; 80053; 82306; 82330; 82533; 82652; 83735; 83935; 83970; 84100; 84145; 84300; 85025; 87045; 87046; 87070; 87205; 87324; 87427; 87449; 87502; 87641; 87798; 87811; 93005; 94640; 96361; 96374; 99291; J7030; Q9967

== ENCOUNTER → 2024-05-28 08:53 | Outpatient (REF) | payer MEDICARE, OTHER, SELFPAY ==
[2024-05-28 09:07] LABS: % Basophils 0.1 % (0-2); % Eosinophils 0.1 % (0-6); % Immature Granulocytes 0.7 % (0-0.5); % Lymphocytes 3.6 % (20.5-51.1); % Neutrophils 90.5 % (42.2-75.2); Absolute Immature Granulocytes 0.1 10^3/uL (0-0.05); Absolute Lymphocytes 0.3 10^3/uL (1.2-3.4); Absolute Monocytes 0.3 10^3/uL (0.1-0.6); Absolute Neutrophils 6.2 10^3/uL (1.4-6.5); Hematocrit 31.6 % (39.0-52.0); Hemoglobin 10.7 g/dL (13.0-18.0); Mean Corp Hgb Conc. 33.9 g/dL (33.0-37.0); Mean Corpuscular Hgb 33.6 pg (27.0-31.0); Mean Corpuscular Volume 99.4 fL (80.0-94.0); Mean Platelet Volume 10.4 fL (7.4-10.4); Platelet Count 151 10^3/uL (130-400); Red Blood Cell Count 3.18 10^6/uL (4.70-6.10); Red Cell Dist. Width 19.6 % (11.5-14.5); White Blood Cell Count 6.9 10^3/uL (4.8-10.8)
[2024-05-28 09:42] LABS: ALT (SGPT) 27 U/L (0-50); AST (SGOT) 22 U/L (17-59); Albumin 3.6 g/dl (3.5-5.0); Alkaline Phosphatase 97 U/L (38-126); Blood Urea Nitrogen 12 mg/dl (9-20); Calcium 9.2 mg/dl (8.4-10.2); Carbon Dioxide 25 mmol/L (22-30); Chloride 97 mmol/L (98-107); Glucose 254 mg/dl (70-99); Potassium 4.2 mmol/L (3.5-5.1); Sodium 130 mmol/L (135-145); Total Bilirubin 0.8 mg/dl (0.2-1.3); eGFR > 60.00
[2024-05-28 11:01] LABS: Ionized Calcium 1.18 mMOL/L (1.15-1.33)
== END ==
LOC: OIDL 08:53
PROVIDERS: ATTENDING PHYSICIAN Internal Medicine Hematology & Oncology
DX: D75.1 Secondary polycythemia (principal); E83.10 Disorder of iron metabolism, unspecified; C34.91 Malignant neoplasm of unspecified part of right bronchus or lung
CPT/HCPCS: 80053; 82330; 85025

== ENCOUNTER → 2024-08-20 10:16 | Outpatient (REF) | payer MEDICARE, OTHER, SELFPAY | LOC: RAD 10:16 | PROVIDERS: ATTENDING PHYSICIAN Nurse Practitioner Primary Care; FAMILY PHYSICIAN Internal Medicine | DX: D75.1 Secondary polycythemia (principal); E83.10 Disorder of iron metabolism, unspecified; C34.91 Malignant neoplasm of unspecified part of right bronchus or lung; F17.210 Nicotine dependence, cigarettes, uncomplicated; E83.51 Hypocalcemia; J70.0 Acute pulmonary manifestations due to radiation | CPT/HCPCS: 71046 ==

== ENCOUNTER → 2024-09-17 08:40 | Outpatient (REF) | payer MEDICARE, OTHER, SELFPAY | LOC: RAD 08:40 | PROVIDERS: ATTENDING PHYSICIAN Internal Medicine Hematology & Oncology; FAMILY PHYSICIAN Internal Medicine | DX: C34.91 Malignant neoplasm of unspecified part of right bronchus or lung (principal); F17.210 Nicotine dependence, cigarettes, uncomplicated; E83.51 Hypocalcemia; J70.0 Acute pulmonary manifestations due to radiation; D75.1 Secondary polycythemia | CPT/HCPCS: 93005 ==

== ENCOUNTER → 2024-10-15 07:16 | Outpatient (REF) | payer MEDICARE, OTHER, SELFPAY | LOC: RAD 07:16 | PROVIDERS: ATTENDING PHYSICIAN Internal Medicine Hematology & Oncology; FAMILY PHYSICIAN Internal Medicine | DX: E83.10 Disorder of iron metabolism, unspecified (principal); C34.91 Malignant neoplasm of unspecified part of right bronchus or lung; F17.210 Nicotine dependence, cigarettes, uncomplicated; E83.51 Hypocalcemia; J70.0 Acute pulmonary manifestations due to radiation | CPT/HCPCS: 71260; Q9967 ==

== ENCOUNTER → 2024-11-12 09:04 | Outpatient (REF) | payer MEDICARE, OTHER, SELFPAY ==
[2024-11-12 10:38] LABS: Hematocrit 36.2 % (39.0-52.0); Hemoglobin 12.3 g/dL (13.0-18.0); Mean Corp Hgb Conc. 34.0 g/dL (33.0-37.0); Mean Corpuscular Volume 89.2 fL (80.0-94.0); Platelet Count 218 10^3/uL (130-400); Red Cell Dist. Width 16.8 % (11.5-14.5)
[2024-11-12 12:02] LABS: ALT (SGPT) 12 U/L (0-50); AST (SGOT) 15 U/L (17-59); Albumin 3.7 g/dl (3.5-5.0); Alkaline Phosphatase 96 U/L (38-126); Blood Urea Nitrogen 9 mg/dl (9-20); Calcium 9.1 mg/dl (8.4-10.2); Carbon Dioxide 28 mmol/L (22-30); Chloride 100 mmol/L (98-107); Glucose 147 mg/dl (70-99); Potassium 3.6 mmol/L (3.5-5.1); Sodium 134 mmol/L (135-145); Total Protein 6.5 g/dl (6.3-8.2); eGFR > 60.00
[2024-11-12 12:32] LABS: TSH 0.70 uIU/ml (0.47-4.68)
== END ==
LOC: OIDL 09:04
PROVIDERS: ATTENDING PHYSICIAN Internal Medicine Hematology & Oncology
DX: D75.1 Secondary polycythemia (principal); E83.10 Disorder of iron metabolism, unspecified; C34.91 Malignant neoplasm of unspecified part of right bronchus or lung; F17.210 Nicotine dependence, cigarettes, uncomplicated; E83.51 Hypocalcemia; J70.0 Acute pulmonary manifestations due to radiation
CPT/HCPCS: 80053; 84443; 85025

== ENCOUNTER → 2024-11-18 07:40 | Outpatient (REF) | payer MEDICARE, OTHER, SELFPAY | LOC: RAD 07:40 | PROVIDERS: ATTENDING PHYSICIAN Radiology Radiation Oncology; FAMILY PHYSICIAN Internal Medicine | DX: C34.81 Malignant neoplasm of overlapping sites of right bronchus and lung (principal) | CPT/HCPCS: 71260; Q9967 ==

== ENCOUNTER → 2024-12-25 07:35 | Outpatient (REF) | payer MEDICARE, OTHER, SELFPAY | LOC: RAD 07:35 | PROVIDERS: ATTENDING PHYSICIAN Radiology Radiation Oncology; FAMILY PHYSICIAN Internal Medicine | DX: C34.81 Malignant neoplasm of overlapping sites of right bronchus and lung (principal) | CPT/HCPCS: 71260; Q9967 ==

== ENCOUNTER → 2025-02-19 06:55 | Outpatient (REF) | payer MEDICARE, OTHER, SELFPAY | LOC: RAD 06:55 | PROVIDERS: ATTENDING PHYSICIAN Radiology Radiation Oncology; FAMILY PHYSICIAN Internal Medicine | DX: C34.81 Malignant neoplasm of overlapping sites of right bronchus and lung (principal) | CPT/HCPCS: 71260; Q9967 ==

== ENCOUNTER → 2025-03-31 09:16 | Outpatient (REF) | payer MEDICARE, OTHER, SELFPAY | LOC: HWRAD 09:16 | PROVIDERS: ATTENDING PHYSICIAN Internal Medicine Critical Care Medicine; FAMILY PHYSICIAN Internal Medicine | DX: C34.91 Malignant neoplasm of unspecified part of right bronchus or lung (principal) | CPT/HCPCS: 71250 ==

== ENCOUNTER 2025-04-06 06:22 | Day surgery (SDC) | payer MEDICARE, OTHER, SELFPAY ==
[2025-04-01 10:55] LABS: Hematocrit 42.3 % (39.0-52.0); Hemoglobin 14.3 g/dL (13.0-18.0); Mean Corp Hgb Conc. 33.8 g/dL (33.0-37.0); Mean Corpuscular Volume 90.6 fL (80.0-94.0); Platelet Count 215 10^3/uL (130-400); Red Cell Dist. Width 14.9 % (11.5-14.5)
[2025-04-01 11:05] LABS: INR 1.00; PT 13.0 Sec (11.4-14.6)
[2025-04-01 11:06] LABS: APTT 30.1 Sec (23.4-35.0)
[2025-04-01 12:42] LABS: Blood Urea Nitrogen 10 mg/dl (9-20); Calcium 9.5 mg/dl (8.4-10.2); Carbon Dioxide 29 mmol/L (22-30); Chloride 99 mmol/L (98-107); Glucose 115 mg/dl (70-99); Potassium 4.8 mmol/L (3.5-5.1); Sodium 134 mmol/L (135-145); eGFR > 60.00
[2025-04-01 13:19] VITALS: BMI 26.5
--- NOTE | 2025-04-01 14:12 | PTCARENOTE ---
Abn ECG, See prior ECG dated 05/08/2024 and 01/02/2014 noting prior history.
[2025-04-06] VITALS (7 sets, daily range): BP systolic 111–136; BP diastolic 60–77; BMI 27.3
[2025-04-06] MEDS: NSS 500 IV (09:19)
== END 2025-04-06 12:10 | disposition home or self-care (01) ==
LOC: SDS 06:22
PROVIDERS: ATTENDING PHYSICIAN Internal Medicine Critical Care Medicine; FAMILY PHYSICIAN Internal Medicine
DX: J98.4 Other disorders of lung (principal); J98.09 Other diseases of bronchus, not elsewhere classified; R91.1 Solitary pulmonary nodule; R91.8 Other nonspecific abnormal finding of lung field; R59.0 Localized enlarged lymph nodes
CPT/HCPCS: 31629; 31623; 31628; 31624; 31654; 36415; 71045; 76000; 80048; 85027; 85610; 85730; 88112; 88173; 88305; 88312; 88333; 88342; 93005